=== PATIENT | female | born 1985 | race Caucasian/White ===

== ENCOUNTER 2018-12-30 17:03 | Inpatient (IN) | payer BC ==
[2018-12-30] MEDS ORDERED: SODIUM CHLORIDE 0.9% 500 ML 500 ML IV STA (18:53)
--- NOTE | 2018-12-30 18:55 | ED ---
General Adult HPI - General Source: patient, RN notes reviewed Mode of arrival: ambulatory Limitations: no limitations <Florentino Clark - Last Filed: 12/30/18 20:56> <Augustine Whitehead - Last Filed: 12/30/18 23:46> - General Chief complaint: Upper Respiratory Infection Stated complaint: Cough, SOB, chest tightness Time Seen by Provider: 12/30/18 18:00 - History of Present Illness Initial comments: This is a 33-year-old female presents emergency Department complaining of shortness of breath since November. Patient states she was initially diagnosed with bronchitis and given antibody steroids and inhalers. Patient states initially she thought she was getting a little better but over the last 2 weeks she's gotten progressively worse. Patient states even walking around the house with the basket of laundry is getting her short of breath per patient understands she's not in great shape but this has never even been a slight problem in the past. Patient states she has been on it for hour car ride in 2 and half hour plane ride recently but has had no calf tenderness or leg swelling. Patient states she is short of breath with exertion in particular. Patient has not had any chest pain here patient denies any recent fever and states she has had a dry cough. Patient denies any palpitations (Florentino Clark) - Related Data Home Medications Medication Instructions Recorded Confirmed No Known Home Medications 12/30/18 12/30/18 Allergies Allergy/AdvReac Type Severity Reaction Status Date / Time amoxicillin Allergy Rash/Hives Verified 12/30/18 19:03 neomycin Allergy Rash/Hives Verified 12/30/18 19:03 Review of Systems ROS Other: All systems not noted in ROS Statement are negative. <Florentino Clark - Last Filed: 12/30/18 20:56> ROS Other: All systems not noted in ROS Statement are negative. <Augustine Whitehead - Last Filed: 12/30/18 23:46> ROS Statement: Those systems with pertinent positive or pertinent negative responses have been documented in the HPI. Past Medical History Past Medical History: No Reported History History of Any Multi-Drug Resistant Organisms: None Reported Additional Past Surgical History / Comment(s): oral surgery Past Psychological History: No Psychological Hx Reported Smoking Status: Never smoker Past Alcohol Use History: None Reported, Occasional Past Drug Use History: None Reported <Florentino Clark - Last Filed: 12/30/18 20:56> General Exam Limitations: no limitations <Florentino Clark - Last Filed: 12/30/18 20:56> <Augustine Whitehead - Last Filed: 12/30/18 23:46> - General Exam Comments Initial Comments: GENERAL: Patient is well-developed and well-nourished. Patient is nontoxic and well- hydrated and is in mild distress. ENT: Neck is soft and supple. No significant lymphadenopathy is noted. Oropharynx is clear. Moist mucous membranes. Neck has full range of motion without eliciting any pain. EYES: The sclera were anicteric and conjunctiva were pink and moist. Extraocular movements were intact and pupils were equal round and reactive to light. Eyelids were unremarkable. PULMONARY: Unlabored respirations. Good breath sounds bilaterally. No audible rales rhonchi or wheezing was noted. CARDIOVASCULAR: Patient is tachycardic at about 105 beats a minute ABDOMEN: Soft and nontender with normal bowel sounds. No palpable organomegaly was noted. There is no palpable pulsatile mass. SKIN: Skin is clear with no lesions or rashes and otherwise unremarkable. NEUROLOGIC: Patient is alert and oriented x3. Cranial nerves II through XII are grossly intact. Motor and sensory are also intact. Normal speech, volume and content. Symmetrical smile. MUSCULOSKELETAL: Normal extremities with adequate strength and full range of motion. No lower extremity swelling or edema. No calf tenderness. LYMPHATICS: No significant lymphadenopathy is noted PSYCHIATRIC: Normal psychiatric evaluation. Normal interpersonal interactions appears functionally intact in deals appropriately with others. No signs of depression. No signs of anxiety. (Florentino Clark) Vital Signs 12/30/18 12/30/18 12/30/18 17:55 20:00 21:00 Temperature 98.6 F Pulse Rate 103 H 110 H 103 H Respiratory 18 22 22 Rate Blood Pressure 114/81 120/92 118/68 O2 Sat by Pulse 99 96 96 Oximetry 12/30/18 12/30/18 22:00 23:00 Temperature Pulse Rate 100 104 H Respiratory 22 22 Rate Blood Pressure 104/83 114/93 O2 Sat by Pulse 96 95 Oximetry Medical Decision Making - Lab Data Result diagrams: 12/30/18 19:23 12/30/18 19:23 <Florentino Clark - Last Filed: 12/30/18 20:56> - Lab Data Result diagrams: 12/30/18 19:23 12/30/18 19:23 <Augustine Whitehead - Last Filed: 12/30/18 23:46> - Medical Decision Making EKG shows sinus tachycardia with occasional PVC at 104 bpm CA interval 186 dresses 92 QT interval 370 QTC is 46. Patient's EKG shows no ST segment elevation or depression. Chest x-ray shows right middle and right lower lobe pneumonia. Patient's d-dimer was elevated so a CAT scan was ordered. I started the patient on Levaquin by mouth (Florentino Clark) I receive this patient as sign out, pending the remainder of her studies. The computed tomography scan does not show PE but more suggestive of a bit of CHF. The BNP also supports this. Given these findings, will admit patient to have 2- D echo and cardiology consultation. (Augustine Whitehead) - Lab Data Lab Results 12/30/18 12/30/18 12/30/18 Range/Units 19:23 19:23 19:23 WBC 8.7 (3.8-10.6) k/uL RBC 4.60 (3.80-5.40) m/uL Hgb 13.7 (11.4-16.0) gm/dL Hct 42.0 (34.0-46.0) % MCV 91.5 (80.0-100.0) fL MCH 29.7 (25.0-35.0) pg MCHC 32.5 (31.0-37.0) g/dL RDW 13.8 (11.5-15.5) % Plt Count 235 (150-450) k/uL Neutrophils % 73 % Lymphocytes % 19 % Monocytes % 5 % Eosinophils % 2 % Basophils % 0 % Neutrophils # 6.4 (1.3-7.7) k/uL Lymphocytes # 1.7 (1.0-4.8) k/uL Monocytes # 0.4 (0-1.0) k/uL Eosinophils # 0.2 (0-0.7) k/uL Basophils # 0.0 (0-0.2) k/uL PT (9.0-12.0) sec INR (<1.2) APTT (22.0-30.0) sec D-Dimer (<0.60) mg/L FEU Sodium 140 (137-145) mmol/L Potassium 4.1 (3.5-5.1) mmol/L Chloride 111 H (98-107) mmol/L Carbon Dioxide 20 L (22-30) mmol/L Anion Gap 9 mmol/L BUN 13 (7-17) mg/dL Creatinine 0.74 (0.52-1.04) mg/dL Est GFR (CKD-EPI)AfAm >90 (>60 ml/min/1.73 sqM) Est GFR (CKD-EPI)NonAf >90 (>60 ml/min/1.73 sqM) Glucose 104 H (74-99) mg/dL Calcium 8.8 (8.4-10.2) mg/dL Magnesium 1.8 (1.6-2.3) mg/dL Total Bilirubin 1.4 H (0.2-1.3) mg/dL AST 33 (14-36) U/L ALT 80 H (9-52) U/L Alkaline Phosphatase 43 (38-126) U/L Total Creatine Kinase 55 (30-135) U/L CK-MB (CK-2) 0.7 (0.0-2.4) ng/mL CK-MB (CK-2) Rel Index 1.3 Troponin I <0.012 (0.000-0.034) ng/mL NT-Pro-B Natriuret Pep pg/mL Total Protein 6.0 L (6.3-8.2) g/dL Albumin 3.5 (3.5-5.0) g/dL Urine HCG, Qual (Not Detectd) 12/30/18 12/30/18 12/30/18 Range/Units 19:23 19:23 20:10 WBC (3.8-10.6) k/uL RBC (3.80-5.40) m/uL Hgb (11.4-16.0) gm/dL Hct (34.0-46.0) % MCV (80.0-100.0) fL MCH (25.0-35.0) pg MCHC (31.0-37.0) g/dL RDW (11.5-15.5) % Plt Count (150-450) k/uL Neutrophils % % Lymphocytes % % Monocytes % % Eosinophils % % Basophils % % Neutrophils # (1.3-7.7) k/uL Lymphocytes # (1.0-4.8) k/uL Monocytes # (0-1.0) k/uL Eosinophils # (0-0.7) k/uL Basophils # (0-0.2) k/uL PT 11.5 (9.0-12.0) sec INR 1.1 (<1.2) APTT 23.4 (22.0-30.0) sec D-Dimer 0.87 H (<0.60) mg/L FEU Sodium (137-145) mmol/L Potassium (3.5-5.1) mmol/L Chloride (98-107) mmol/L Carbon Dioxide (22-30) mmol/L Anion Gap mmol/L BUN (7-17) mg/dL Creatinine (0.52-1.04) mg/dL Est GFR (CKD-EPI)AfAm (>60 ml/min/1.73 sqM) Est GFR (CKD-EPI)NonAf (>60 ml/min/1.73 sqM) Glucose (74-99) mg/dL Calcium (8.4-10.2) mg/dL Magnesium (1.6-2.3) mg/dL Total Bilirubin (0.2-1.3) mg/dL AST (14-36) U/L ALT (9-52) U/L Alkaline Phosphatase (38-126) U/L Total Creatine Kinase (30-135) U/L CK-MB (CK-2) (0.0-2.4) ng/mL CK-MB (CK-2) Rel Index Troponin I (0.000-0.034) ng/mL NT-Pro-B Natriuret Pep 7950 pg/mL Total Protein (6.3-8.2) g/dL Albumin (3.5-5.0) g/dL Urine HCG, Qual Not Detected (Not Detectd) Disposition <Florentino Clark - Last Filed: 12/30/18 20:56> Is patient prescribed a controlled substance at d/c from ED?: No <Augustine Whitehead - Last Filed: 12/30/18 23:46> Clinical Impression: CHF (congestive heart failure) Disposition: ADMITTED IP TO THIS HOSP Condition: Fair Referrals: Nonstaff,Physician [Primary Care Provider] - 1-2 days
[2018-12-30 19:40] LABS: Basophils % (A) 0 %; Eosinophils # (A) 0.2 k/uL (0-0.7); Eosinophils % (A) 2 %; HGB 13.7 gm/dL (11.4-16.0); Lymphocytes # (A) 1.7 k/uL (1.0-4.8); Lymphocytes % (A) 19 %; MCH 29.7 pg (25.0-35.0); MCHC 32.5 g/dL (31.0-37.0); MCV 91.5 fL (80.0-100.0); Mean Platelet Volume 7.5; Monocytes # (A) 0.4 k/uL (0-1.0); Monocytes % (A) 5 %; Neutrophils # (A) 6.4 k/uL (1.3-7.7); Neutrophils % (A) 73 %; Platelet Count 235 k/uL (150-450); RDW 13.8 % (11.5-15.5); WBC 8.7 k/uL (3.8-10.6)
[2018-12-30 19:51] LABS: ALT 80 U/L (9-52); AST 33 U/L (14-36); Albumin 3.5 g/dL (3.5-5.0); Alkaline Phosphatase 43 U/L (38-126); Anion Gap 9 mmol/L; Blood Urea Nitrogen 13 mg/dL (7-17); Calcium 8.8 mg/dL (8.4-10.2); Carbon Dioxide 20 mmol/L (22-30); Chloride 111 mmol/L (98-107); Glucose 104 mg/dL (74-99); Magnesium 1.8 mg/dL (1.6-2.3); Potassium 4.1 mmol/L (3.5-5.1); Sodium 140 mmol/L (137-145); Total Bilirubin 1.4 mg/dL (0.2-1.3)
[2018-12-30 19:54] LABS: Creatine Kinase 55 U/L (30-135)
[2018-12-30 20:06] LABS: INR 1.1 (<1.2); Partial Thromboplastin Time 23.4 sec (22.0-30.0); Prothrombin Time 11.5 sec (9.0-12.0)
[2018-12-30 20:07] LABS: Creatine Kinase MB 0.7 ng/mL (0.0-2.4); Troponin I <0.012 ng/mL (0.000-0.034)
[2018-12-30 20:13] LABS: D-Dimer 0.87 mg/L FEU (<0.60)
--- NOTE | 2018-12-30 20:24 | XR ---
EXAMINATION TYPE: XR chest 2V DATE OF EXAM: 12/30/2018 COMPARISON: NONE HISTORY: Cough short of breath TECHNIQUE: Frontal and lateral views of the chest are obtained. FINDINGS: Heart is enlarged. There is some infiltrate in the right middle lobe and right lower lobe. There is no gross heart failure. There is no definite pleural effusion. There are chest leads. IMPRESSION: Cardiomegaly. Right middle lobe and right lower lobe pneumonic infiltrate consistent wit h pneumonia. No definite heart failure.
[2018-12-30] MEDS ORDERED: LEVOFLOXACIN 750 MG TAB PO STA (20:55)
--- NOTE | 2018-12-30 21:40 | CT ---
EXAMINATION TYPE: CT chest angio for PE DATE OF EXAM: 12/30/2018 COMPARISON: None HISTORY: Cough and difficulty breathing. CT DLP: 451.2 mGycm Automated exposure control for dose reduction was used. CONTRAST: CT Chest for pulmonary embolism performed with with IV Contrast, patient injected with 64ml mL of Iso mason 370. FINDINGS: There are 3-D post processed images. There is no mediastinal adenopathy. Thoracic aorta shows no evidence of aneurysm. There are no hilar masses. There is normal contrast opacification of the pulmonary arteries. I see no filling defects. H eart appears slightly enlarged. There are a few bronchial lymph nodes that measure up to 1 cm. There is right pleural effusion. There is some patchy interstitial infiltrate and atelectasis at the lung b ases more on the right side. The bony thorax is intact. IMPRESSION: No evidence of pulmonary embolism. Cardiomegaly with right pleural effusion and interstitial infiltra evon and atelectasis at the lung bases. This could relate to congestive heart failure.
[2018-12-30] MEDS ORDERED: FUROSEMIDE 10 MG/ML 4 ML VIAL IV SCH (23:30)
[2018-12-31] MEDS ORDERED: NALOXONE 0.4 MG/ML 1 ML VIAL IV PRN (00:08)
--- NOTE | 2018-12-31 00:12 | P.HPIM ---
History of Present Illness H&P Date: 12/30/18 Patient is a 33-year-old female with no significant PMH who presented to the ED due to gradually worsening shortness of breath along with nonproductive cough ongoing since October 2018. The patient notes that she was seen by her PMD and was believed to have bronchitis and was prescribed albuterol inhalers along with Z-Maycol which did not relieve her symptoms. The shortness of breath is exertional and is accompanied by chest discomfort. The patient also endorsed episodic nausea and abdominal discomfort along with one episode of bright yellow watery stools yesterday. The patient however denied orthopnea, PND, lower extremity swelling, palpitations, fever, chills, sore throat, dysuria, or constipation. Of note, the patient's spouse was diagnosed twice with myocarditis and systolic CHF in 2010 and 2012 with EF of 5%, and subsequently recovered to EF of 40%. In the emergency room, the patient underwent a comprehensive workup, with BNP 7950, troponin less than 0.02, T bili 1.4, WBC 8.7, hemogram 13.7, platelets 235 , BUN 13, creatinine 0.74, EKG showing sinus tachycardia at 104 bpm with PVCs, left axis deviation, multiple T-wave abnormalities. Chest x-ray revealed cardiomegaly and possible pneumonia. CTA chest showed pulmonary edema along with interstitial infiltrates and cardiomegaly. The patient is subsequently being admitted to the medicine service for suspected cardiomyopathy and for cardiology evaluation. Review of Systems Pertinent positives and negatives as discussed in HPI, a complete review of systems was performed and all other systems are negative. Past Medical History Past Medical History: No Reported History History of Any Multi-Drug Resistant Organisms: None Reported Additional Past Surgical History / Comment(s): oral surgery Past Psychological History: No Psychological Hx Reported Smoking Status: Never smoker Past Alcohol Use History: None Reported, Occasional Past Drug Use History: None Reported Medications and Allergies Home Medications Medication Instructions Recorded Confirmed Type No Known Home Medications 12/30/18 12/30/18 History Allergies Allergy/AdvReac Type Severity Reaction Status Date / Time amoxicillin Allergy Rash/Hives Verified 12/30/18 19:03 neomycin Allergy Rash/Hives Verified 12/30/18 19:03 Physical Exam Vitals: Vital Signs Temp Pulse Resp BP Pulse Ox 12/30/18 23:00 104 H 22 114/93 95 12/30/18 22:00 100 22 104/83 96 12/30/18 21:00 103 H 22 118/68 96 12/30/18 20:00 110 H 22 120/92 96 12/30/18 17:55 98.6 F 103 H 18 114/81 99 Intake and Output 12/30/18 12/30/18 12/31/18 14:59 22:59 06:59 Other: Weight 108.862 kg General: non toxic, no distress, appears at stated age, normal weight Derm: no unusual rashes/lesions no unusual ecchymoses, warm, dry Head: atraumatic, normocephalic, symmetric Eyes: EOMI, no lid lag, anicteric sclera, pupils equal round reactive to light ENT: Nose and ears atraumatic, no thrush, no pharyngeal erythema Neck: No thyromegaly, no cervical lymphadenopathy, trachea midline, supple Mouth: no lip lesion, mucus membranes moist Cardiovascular: S1S2 reg, no murmur, positive posterior tibial pulse bilateral, no edema, capillary refill less than 2 seconds Lungs: Mild bibasilar Rales, mild scattered rhonchi, , no accessory muscle use Abdominal: soft, nontender to palpation, no guarding, no appreciable organomegaly, normal bowel sounds Ext: no gross muscle atrophy, muscle strength 5 out of 5 in all 4 extremities grossly, no contractures, Neuro: CN II-XI grossly intact, light touch intact all 4 extremities, finger to nose within normal limits, Psych: Alert, oriented, appropriate affect Results CBC & Chem 7: 12/30/18 19:23 12/30/18 19:23 Labs: Abnormal Lab Results - Last 24 Hours (Table) 12/30/18 12/30/18 Range/Units 19:23 19:23 D-Dimer 0.87 H (<0.60) mg/L FEU Chloride 111 H (98-107) mmol/L Carbon Dioxide 20 L (22-30) mmol/L Glucose 104 H (74-99) mg/dL Total Bilirubin 1.4 H (0.2-1.3) mg/dL ALT 80 H (9-52) U/L Total Protein 6.0 L (6.3-8.2) g/dL Assessment and Plan Plan: Fluid overload, suspected cardiomyopathy -Cardiac monitoring -Cardiology consult -Lasix 40 mg IV push every 12 hourly -Monitor BMP -Echocardiogram -Supplemental oxygen -Intake and output -Daily weights -Low suspicion of pneumonia, hold off on antibiotics at this time Deranged LFTs -Right upper quadrant ultrasound -Monitor LFTs DVT//GI prophylaxis -Heparin -Protonix The patient is admitted with an anticipated greater than 2 midnight stay for evaluation of shortness of breath. CODE STATUS: Full code Discussed with: Patient Anticipated discharge date: 01/02/[address]: Home A total of 45 minutes was spent on the care of this complex patient more than 50 % of the time was spent in counseling and care coordination.
[2018-12-31] MEDS ORDERED: FUROSEMIDE 10 MG/ML 4 ML VIAL IV SCH (00:15)
[2018-12-31 05:59] LABS: Creatine Kinase MB 0.8 ng/mL (0.0-2.4); Troponin I <0.012 ng/mL (0.000-0.034)
[2018-12-31] MEDS: HEPARIN SODIUM,PORCINE 5,000 UNIT/ML 1 ML VIAL SQ SCH ×3 (08:59→23:07)
[2018-12-31] MEDS: PANTOPRAZOLE 40 MG TABLET PO SCH (09:01)
[2018-12-31] MEDS ORDERED: INFLUENZA VACCINE (6 MOS+) 60 MCG/0.5 ML SYRINGE IM ONE (10:11)
--- NOTE | 2018-12-31 11:13 | ECHOF ---
Referral Reason:CHF MEASUREMENTS -------- HEIGHT: 167.6 cm WEIGHT: 108.9 kg BP: 91/68 RVIDd: 3.8 cm (< 3.3) IVSd: 1.1 cm (0.6 - 1.1) LVIDd: 5.4 cm (3.9 - 5.3) LVPWd: 1.2 cm (0.6 - 1.1) IVSs: 1.4 cm LVIDs: 5.1 cm LVPWs: 1.3 cm LAESV Index (A-L): 49.61 ml/m Ao Diam: 2.6 cm (2.0 - 3.7) AV Cusp: 1.8 cm (1.5 - 2.6) LA Diam: 4.5 cm (2.7 - 3.8) MV EXCURSION: 23.948 mm (> 18.000) MV EF SLOPE: 156 mm/s (70 - 150) EPSS: 1.7 cm MV E Leighton: 1.06 m/s MV DecT: 162 ms MV A Leighton: 0.23 m/s MV E/A Ratio: 4.57 RAP: 15.00 mmHg RVSP: 39.47 mmHg FINDINGS -------- Sinus rhythm. This was a technically good study. The left ventricle is mildly dilated. There is borderline concentric left ventricular hypertrophy. There is severe global hypokinesis of LV . Overall left ventricular systolic function is severely impaired with, an EF between 20 - 25 %. The LV end diastolic pressure is elevated 17.14. The right ventricle is mild to moderately enlarged. LA is severely dilated >40 ml/m2 The right atrium is normal in size. Interatrial septal aneurysm. The aortic valve is trileaflet, and appears structurally normal. No aortic stenosis or regurgitation. The mitral valve leaflets are mildly thickened. [id number] mitral regurgitation is present. Moderate to severe tricuspid regurgitation present. There is mild pulmonary hypertension. The rig ht ventricular systolic pressure, as measured by Doppler, is 39.47mmHg. Pulmonic valve appears structurally normal. The aortic root size is normal. The inferior vena cava is mildly dilated. The pericardium is normal. CONCLUSIONS -------- 1. Sinus rhythm. 2. This was a technically good study. 3. The left ventricle is mildly dilated. 4. There is borderline concentric left ventricular hypertrophy. 5. There is severe global hypokinesis of LV . 6. Overall left ventricular systolic function is severely impaired with, an EF between 20 - 25 %. 7. The right ventricle is mild to moderately enlarged. 8. LA is severely dilated >40 ml/m2 9. The right atrium is normal in size. 10. Interatrial septal aneurysm. 11. The aortic valve is trileaflet, and appears structurally normal. No aortic stenosis or regurgitat ion. 12. The mitral valve leaflets are mildly thickened. 13. Ytddgvov-rf-kzgxbk mitral regurgitation is present. 14. Moderate to severe tricuspid regurgitation present. 15. There is mild pulmonary hypertension. 16. The right ventricular systolic pressure, as measured by Doppler, is 39.47mmHg. 17. Pulmonic valve appears structurally normal. 18. The aortic root size is normal. 19. The inferior vena cava is mildly dilated. 20. The pericardium is normal. [employer] OPERATOR: Fawn Deal RDCS
[2018-12-31] MEDS: FUROSEMIDE 10 MG/ML 4 ML VIAL IV SCH ×2 (12:02→20:24)
[2018-12-31 13:05] LABS: Creatine Kinase MB 0.7 ng/mL (0.0-2.4); Troponin I <0.012 ng/mL (0.000-0.034)
--- NOTE | 2018-12-31 14:38 | US ---
EXAMINATION TYPE: US abdomen limited DATE OF EXAM: 12/31/2018 COMPARISON: NONE CLINICAL HISTORY: Abnormal LFTs, RUQ US. diagnosed with CHF, chest pain EXAM MEASUREMENTS: Liver Length: 18.9 cm Gallbladder Wall: 0.3 cm CBD: 0.5 cm Right Kidney: 12.0 x 4.4 x 4.4 cm Pancreas: wnl Liver: Suspect the liver is enlarged Gallbladder: wnl Evidence for sonographic Kolb's sign: no CBD: wnl Right Kidney: wnl There is no ascites. IMPRESSION: Suspect hepatomegaly
--- NOTE | 2018-12-31 15:09 | CONS ---
CONSULTATION Mrs. Louise is 33-year-old female with no prior documented history of cardiac disease who early in November had upper respiratory infection, was treated. She got better but then started to continue to be dyspneic on exertion with worsening over the last few weeks. She did not note any significant peripheral edema. She has continued to be limited in her physical activity as well as having cough. She used to be active physically but not over the last 6 months and has gained some weight. She denies any symptoms of chest pain. She has no dizziness or palpitation. No syncope. No PND. No orthopnea. She has not noted any peripheral edema. Her coronary risk factors negative for hypertension, hyperlipidemia. She is a nonsmoker, nondiabetic. SOCIAL HISTORY: She drinks caffeine. Non smoker. She drinks about 5 glasses of wine a week, but not on a daily basis. REVIEW OF SYSTEMS: RESPIRATORY system: She had a cough, the recent upper respiratory infection. GI system: No nausea and no vomiting. No GI bleeding. system: No dysuria or hematuria. Nervous system: No stroke or seizure. PHYSICAL EXAMINATION: She is a 33-year-old female, alert, oriented, in no apparent distress. Blood pressure 119/80 with a heart rate in the low 100s. HEAD: Normocephalic. EYES: Sclerae anicteric. NECK: Good upstroke. No bruit. LUNGS: A few crackles at the bases. HEART: Regular rate and rhythm S1-S2. Tachycardic. systolic murmur at the apex. ABDOMEN: Soft, nontender. Positive bowel sounds. No organomegaly. EXTREMITIES: Trace edema. LAB DATA: Lab data revealed troponin less than 0.012 for 3 samples. NT proBNP of 7950. BUN and creatinine of 13 and 0.74. D-dimer 0.87. Hemoglobin of 13.7. EKG revealed a sinus tachycardia with occasional PVCs and poor R-wave progression. Chest x-ray revealed cardiomegaly with a questionable infiltrate. CT scan of the chest revealed no evidence of pulmonary embolism with cardiomegaly and right pleural effusion consistent with congestive heart failure. Echocardiogram with Doppler revealed a severely impaired left ventricular systolic function with moderate to severe mitral and mild to severe tricuspid regurgitation. IMPRESSION: 1. Congestive heart failure, severe cardiomyopathy of unclear etiology. The patient may have had a viral myocarditis. 2. The other possibility includes idiopathic dilated cardiomyopathy of unknown duration. RECOMMENDATIONS: From the cardiac standpoint, I will add to her regimen a beta genna, Aldactone. Continue on IV diuretics. I will start very low-dose SHERIDAN inhibitor and depending on her blood pressure, further adjustment will be made. The patient will require coronary angiography when she is stabilized from the cardiac standpoint to rule out obstructive coronary artery disease, although the likelihood of that is low. I have discussed those findings with the patient and her and they are in full understanding and agreement. Thank you for this consult. We will follow with you. ARASH / IJN: [id number] /
[2018-12-31 15:12] VITALS: BMI 37.7
--- NOTE | 2018-12-31 15:13 | P.PN ---
Subjective Progress Note Date: 12/31/18 Principal diagnosis: CHF exacerbation Patient seen and examined. No acute events overnight. Patient reports great improvement in breathing since being given IV Lasix. She denies any shortness of breath, cough, chest pain or palpitations. Patient reports feeling short of breath and fatigue with exertional dyspnea since November. She denies any history of lupus or rheumatoid arthritis. She denies any ongoing chest pain at this time. She denies any abnormal viral infections or genetic family history of early CHF. She has never had any children. 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 Objective - Vital Signs Vital signs: Vital Signs Temp 97.8 F 12/31/18 12:00 Pulse 119 H 12/31/18 12:00 Resp 17 12/31/18 12:00 BP 119/80 12/31/18 12:00 Pulse Ox 97 12/31/18 12:00 Intake & Output 12/30/18 12/31/18 12/31/18 18:59 06:59 18:59 Output Total 2500 Balance -2500 Weight 108.862 kg 106 kg Output: Urine 2500 Other: # Voids 2 1 - Exam General: [non toxic], [no distress], [appears at stated age] Derm: [warm], [dry] Head: [atraumatic], [normocephalic], [symmetric] Eyes: [EOMI], [no lid lag], [anicteric sclera] Mouth: [no lip lesion], [mucus membranes moist] Cardiovascular: [S1S2 reg], [no murmur], [positive DP pulse bilateral] Lungs: [CTA bilateral], [no rhonchi, no rales] , [no accessory muscle use] Abdominal: [soft], [ nontender to palpation], [no guarding], [no appreciable organomegaly] Ext: [no gross muscle atrophy], [no edema], [no contractures] Neuro: [ CN II-XI grossly intact], [no focal neuro deficits] Psych: [Alert], [oriented], [appropriate affect] - Labs CBC & Chem 7: 12/30/18 19:23 12/30/18 19:23 Labs: Abnormal Lab Results - Last 24 Hours (Table) 12/30/18 12/30/18 Range/Units 19:23 19:23 D-Dimer 0.87 H (<0.60) mg/L FEU Chloride 111 H (98-107) mmol/L Carbon Dioxide 20 L (22-30) mmol/L Glucose 104 H (74-99) mg/dL Total Bilirubin 1.4 H (0.2-1.3) mg/dL ALT 80 H (9-52) U/L Total Protein 6.0 L (6.3-8.2) g/dL Assessment and Plan Assessment: Assessment and Plan 1. CHF exacerbation 2. Elevated d-dimer 3. Hyperchloremic metabolic acidosis 4. Elevated liver enzymes 5. GI and DVT prophylaxis 1. BNP is 7950. Chest x-ray shows cardiomegaly, pneumonic infiltrate possible pneumonia. CTA of the chest is performed due to the elevated d-dimer, negative for PE. Echocardiogram shows EF of 20-25% with LVH and severely impaired systolic function. We'll continue diuresing with Lasix 40 mg IV twice a day. Start beta genna and SHERIDAN inhibitor. Start spironolactone. Daily weights. Intake and output take. Telemetry monitoring. Will follow cardiology recommendations for possible cath. 2. D-dimer elevated at 0.87. CTA of the chest rules out vomiting embolus. 3. Chloride of 111, bicarbonate of 20. Possibly from bolus received in ED. Daily BMP. 4. Total bilirubin of 1.4, ALT of 80. Likely secondary to dehydration and likely liver dysfunction for obesity. Will follow abdominal ultrasound. 5. Continue heparin and Protonix. Patient medical CHF exacerbation, cardiology on consult. Unknown cause for acute onset systolic heart failure. Continue IV diuresing. Patient is pending clinical improvement. Likely DC in 1-2 days. Fall cartilage recommendations for possible cath.
[2018-12-31] MEDS: METOPROLOL SUCCINATE (ER) 25 MG TAB.ER.24H PO SCH (15:53)
[2018-12-31] MEDS: SPIRONOLACTONE 25 MG TAB PO SCH (15:54)
[2018-12-31] MEDS ORDERED: LEVOFLOXACIN 750 MG TAB PO SCH (21:00)
[2018-12-31] MEDS ORDERED: ASPIRIN 325 MG TAB PO SCH (23:33)
[2019-01-01 06:21] LABS: Basophils % (A) 1 %; Eosinophils # (A) 0.2 k/uL (0-0.7); Eosinophils % (A) 3 %; HCT 45.9 % (34.0-46.0); Lymphocytes # (A) 1.7 k/uL (1.0-4.8); Lymphocytes % (A) 25 %; MCH 29.3 pg (25.0-35.0); MCHC 32.6 g/dL (31.0-37.0); MCV 89.8 fL (80.0-100.0); Mean Platelet Volume 6.8; Monocytes # (A) 0.3 k/uL (0-1.0); Monocytes % (A) 5 %; Neutrophils # (A) 4.7 k/uL (1.3-7.7); Neutrophils % (A) 66 %; Platelet Count 246 k/uL (150-450); RBC 5.11 m/uL (3.80-5.40); RDW 13.6 % (11.5-15.5); WBC 7.1 k/uL (3.8-10.6)
[2019-01-01 06:28] LABS: INR 1.1 (<1.2); Prothrombin Time 11.8 sec (9.0-12.0)
[2019-01-01 06:30] LABS: ALT 75 U/L (9-52); AST 28 U/L (14-36); Albumin 3.6 g/dL (3.5-5.0); Alkaline Phosphatase 46 U/L (38-126); Anion Gap 9 mmol/L; Blood Urea Nitrogen 11 mg/dL (7-17); Calcium 9.1 mg/dL (8.4-10.2); Carbon Dioxide 26 mmol/L (22-30); Chloride 106 mmol/L (98-107); Glucose 94 mg/dL (74-99); Magnesium 1.9 mg/dL (1.6-2.3); Potassium 3.7 mmol/L (3.5-5.1); Sodium 141 mmol/L (137-145); Total Bilirubin 1.5 mg/dL (0.2-1.3)
[2019-01-01] MEDS: PANTOPRAZOLE 40 MG TABLET PO SCH (06:33)
[2019-01-01] MEDS: METOPROLOL SUCCINATE (ER) 25 MG TAB.ER.24H PO SCH (08:42)
[2019-01-01] MEDS: SPIRONOLACTONE 25 MG TAB PO SCH (08:42)
[2019-01-01] MEDS: FUROSEMIDE 10 MG/ML 4 ML VIAL IV SCH ×2 (08:42→20:44)
[2019-01-01] MEDS: ASPIRIN 81 MG PO SCH (08:43)
[2019-01-01] MEDS: HEPARIN SODIUM,PORCINE 5,000 UNIT/ML 1 ML VIAL SQ SCH ×3 (08:43→23:52)
[2019-01-01] MEDS ORDERED: LISINOPRIL 2.5 MG TAB PO SCH (09:00)
--- NOTE | 2019-01-01 11:30 | P.PN ---
Subjective Progress Note Date: 01/01/19 Principal diagnosis: CHF exacerbation patient seen and examined. No acute events overnight. Patient seen ambulating the hallways freely. Patient reports great improvement in her breathing. She has lost 13 pounds since admission. She denies any chest pain, dizziness, shortness of breath or palpitations. Objective - Vital Signs Vital signs: Vital Signs Temp 98.2 F 01/01/19 08:00 Pulse 85 01/01/19 08:00 Resp 18 01/01/19 08:00 BP 105/68 01/01/19 08:00 Pulse Ox 96 01/01/19 08:00 Intake & Output 12/31/18 01/01/19 01/01/19 18:59 06:59 18:59 Intake Total 270 Output Total 4400 1450 Balance -4130 -1450 Weight 106 kg 103 kg Intake: IV 10 Invasive Line 1 10 Oral 260 Output: Urine 4400 1450 Other: # Voids 4 - Exam General: [non toxic], [no distress], [appears at stated age] Derm: [warm], [dry] Head: [atraumatic], [normocephalic], [symmetric] Eyes: [EOMI], [no lid lag], [anicteric sclera] Mouth: [no lip lesion], [mucus membranes moist] Cardiovascular: [S1S2 reg], [systolic murmur], [positive DP pulse bilateral] Lungs: [CTA bilateral], [no rhonchi, no rales] , [no accessory muscle use] Abdominal: [soft], [ nontender to palpation], [no guarding], [no appreciable organomegaly] Ext: [no gross muscle atrophy], [no edema], [no contractures] Neuro: [no focal neuro deficits] Psych: [Alert], [oriented], [appropriate affect] - Labs CBC & Chem 7: 01/01/19 05:42 01/01/19 05:42 Labs: Abnormal Lab Results - Last 24 Hours (Table) 01/01/19 Range/Units 05:42 Total Bilirubin 1.5 H (0.2-1.3) mg/dL ALT 75 H (9-52) U/L Total Protein 6.0 L (6.3-8.2) g/dL Assessment and Plan Assessment: Assessment and Plan 1. CHF exacerbation 2. Severe mitral and tricuspid regurgitation 3. Elevated d-dimer 4. Elevated liver enzymes 5. GI and DVT prophylaxis 1. BNP is 7950. Chest x-ray shows cardiomegaly, pneumonic infiltrate possible pneumonia. CTA of the chest is performed due to the elevated d-dimer, negative for PE. Echocardiogram shows EF of 20-25% with LVH and severely impaired systolic function. We'll continue diuresing with Lasix 40 mg IV twice a day. Start beta genna and SHERIDAN inhibitor. Start spironolactone. Daily weights. Intake and output take. Telemetry monitoring. Cardiology consulted, recommends outpatient follow-up for cath. 2. Severe mitral and tricuspid regurgitation seen on echocardiogram. Patient denies risk factors of endocarditis. Does report multiple episodes of strep throat. Will discuss with cardiology. 3. D-dimer elevated at 0.87. CTA of the chest rules out pulmonary embolus. 4. Total bilirubin of 1.4 to 1.5, ALT of 80 to 75. Likely secondary to dehydration and likely liver dysfunction for obesity. abdominal ultrasound shows hepatomegaly. 5. Continue heparin and Protonix. Patient medical CHF exacerbation, cardiology on consult. Unknown cause for acute onset systolic heart failure. Continue IV diuresing. Patient is pending clinical improvement. Likely DC in 1-2 days.
[2019-01-01] MEDS ORDERED: POTASSIUM CHLORIDE ER 20 MEQ TAB.ER PO STA (12:04)
--- NOTE | 2019-01-01 12:46 | P.PN ---
Subjective Progress Note Date: 01/01/19 This is a 33-year-old female with no prior documented history of coronary artery disease, who had an upper respiratory infection in November which was treated however she states it took quite some time for her to get over. She has noticed over the past 6 months to have gained some weight. She presented to the hospital initially with symptoms of shortness of breath mostly exertional in nature, also evidence of orthopnea. The patient was seen in consultation by Dr. Diaz, echocardiogram with Doppler study showed an ejection fraction of 20-25%, severely dilated left atrium, moderate to severe MR , moderate to severe TR. Patient was initiated on a regime of medications for her cardiomyopathy. This morning we did stop her SHERIDAN inhibitor and instruct the patient that we would be starting her on Entresto 36 hours. Overall the patient feels well, he's been encouraged today to be up ambulating in the hallway. Blood pressure 108/70 with a heart rate in the 50s to 60s, 96% on room air. Objective - Vital Signs Vital signs: Vital Signs Temp 98.2 F 01/01/19 11:51 Pulse 54 L 01/01/19 11:51 Resp 17 01/01/19 11:51 BP 108/78 01/01/19 11:51 Pulse Ox 96 01/01/19 11:51 Intake & Output 12/31/18 01/01/19 01/01/19 18:59 06:59 18:59 Intake Total 270 260 Output Total 4400 1450 600 Balance -4130 -1450 -340 Weight 106 kg 103 kg Intake: IV 10 Invasive Line 1 10 Oral 260 260 Output: Urine 4400 1450 600 Other: # Voids 4 - Exam PHYSICAL EXAMINATION: GENERAL: 31-year-old female in no acute distress at the time of my examination HEENT: Head is atraumatic, normocephalic. Pupils equal, round. Sclera anicteric. Conjunctiva are clear. Mucous membranes of the mouth are moist. Neck is supple. There is no elevated jugular venous pressure. No carotid bruit is heard. HEART EXAMINATION: Heart S1 S2 1 systolic murmur is heard CHEST EXAMINATION: Lungs are clear to auscultation and precussion. No chest wall tenderness is noted on palpation or with deep breathing. ABDOMEN: Soft, nontender. Bowel sounds are heard. No organomegaly noted. EXTREMITIES: 2+ peripheral pulses with trace evidence of peripheral edema and no calf tenderness noted. NEUROLOGIC patient is awake, alert and oriented 3 . . - Labs CBC & Chem 7: 01/01/19 05:42 01/01/19 05:42 Labs: Abnormal Lab Results - Last 24 Hours (Table) 01/01/19 Range/Units 05:42 Total Bilirubin 1.5 H (0.2-1.3) mg/dL ALT 75 H (9-52) U/L Total Protein 6.0 L (6.3-8.2) g/dL Assessment and Plan Plan: Assessment and plan #1 systolic congestive heart failure acute #2 severe cardiomyopathy, of unclear etiology, possibly of viral myocarditis or idiopathic dilated cardiomyopathy Plan We will discontinue the SHERIDAN inhibitor, and 36 hours start the patient on Entresto. Continue a baby aspirin, IV Lasix, metoprolol, and Aldactone. Check labs in the morning. DNP note has been reviewed, I agree with a documented findings and plan of care. Patient was seen and examined.
[2019-01-01] MEDS: MAGNESIUM SULFATE-D5W PMX 1 GM in DEXTROSE/WATER 1 100ML.BAG IVPB SCH ×2 (12:59→14:40)
[2019-01-02] MEDS: PANTOPRAZOLE 40 MG TABLET PO SCH (06:28)
[2019-01-02 06:49] LABS: Basophils # (A) 0.1 k/uL (0-0.2); Basophils % (A) 1 %; Eosinophils # (A) 0.2 k/uL (0-0.7); Eosinophils % (A) 3 %; HCT 47.9 % (34.0-46.0); HGB 15.3 gm/dL (11.4-16.0); Lymphocytes # (A) 1.7 k/uL (1.0-4.8); Lymphocytes % (A) 24 %; MCH 28.6 pg (25.0-35.0); MCV 89.5 fL (80.0-100.0); Mean Platelet Volume 6.7; Monocytes # (A) 0.4 k/uL (0-1.0); Monocytes % (A) 6 %; Neutrophils # (A) 4.5 k/uL (1.3-7.7); Neutrophils % (A) 64 %; Platelet Count 261 k/uL (150-450); RBC 5.36 m/uL (3.80-5.40); RDW 13.7 % (11.5-15.5)
[2019-01-02 07:03] LABS: ALT 63 U/L (9-52); AST 22 U/L (14-36); Albumin 3.7 g/dL (3.5-5.0); Alkaline Phosphatase 48 U/L (38-126); Anion Gap 9 mmol/L; Blood Urea Nitrogen 13 mg/dL (7-17); Calcium 8.9 mg/dL (8.4-10.2); Carbon Dioxide 26 mmol/L (22-30); Chloride 105 mmol/L (98-107); Glucose 98 mg/dL (74-99); Magnesium 2.2 mg/dL (1.6-2.3); Potassium 4.2 mmol/L (3.5-5.1); Sodium 140 mmol/L (137-145); Total Bilirubin 1.2 mg/dL (0.2-1.3); Total Protein 6.3 g/dL (6.3-8.2)
[2019-01-02] MEDS: ASPIRIN 81 MG PO SCH (08:11)
[2019-01-02] MEDS: METOPROLOL SUCCINATE (ER) 25 MG TAB.ER.24H PO SCH (08:11)
[2019-01-02] MEDS: HEPARIN SODIUM,PORCINE 5,000 UNIT/ML 1 ML VIAL SQ SCH (08:12)
[2019-01-02] MEDS: FUROSEMIDE 10 MG/ML 4 ML VIAL IV SCH (08:12)
--- NOTE | 2019-01-02 11:47 | P.PN ---
Subjective Progress Note Date: 01/02/19 Principal diagnosis: CHF exacerbation Patient seen and examined. No acute events overnight. Patient seen ambulating the hallways comfortably. She denies any shortness of breath, chest pain or palpitations. Patient reports returning back to baseline. Plans to start and Entresto today, monitor vitals overnight, likely discharge tomorrow. Objective - Vital Signs Vital signs: Vital Signs Temp 97.5 F L 01/02/19 11:38 Pulse 94 01/02/19 11:38 Resp 18 01/02/19 11:38 BP 95/53 01/02/19 11:38 Pulse Ox 97 01/02/19 11:38 Intake & Output 01/01/19 01/02/19 01/02/19 18:59 06:59 18:59 Intake Total 1780 240 Output Total 1200 1500 Balance 580 -1500 240 Weight 102.6 kg Intake: IV 220 Invasive Line 2 20 Magnesium Sulfate-D5w Pmx 200 1 gm In Dextrose/Water 1 100ml.bag @ 100 mls/hr IVPB Q1H JENNIFER Rx#: [id number] Oral 1560 240 Output: Urine 1200 1500 Other: # Voids 2 - Exam General: [non toxic], [no distress], [appears at stated age] Derm: [warm], [dry] Head: [atraumatic], [normocephalic], [symmetric] Eyes: [EOMI], [no lid lag], [anicteric sclera] Mouth: [no lip lesion], [mucus membranes moist] Cardiovascular: [S1S2 reg], [systolic murmur], [positive DP pulse bilateral] Lungs: [CTA bilateral], [no rhonchi, no rales] , [no accessory muscle use] Abdominal: [soft], [ nontender to palpation], [no guarding], [no appreciable organomegaly] Ext: [no gross muscle atrophy], [no edema], [no contractures] Neuro: [no focal neuro deficits] Psych: [Alert], [oriented], [appropriate affect] - Labs CBC & Chem 7: 01/02/19 06:00 01/02/19 06:00 Labs: Abnormal Lab Results - Last 24 Hours (Table) 01/02/19 01/02/19 Range/Units 06:00 06:00 Hct 47.9 H (34.0-46.0) % ALT 63 H (9-52) U/L Assessment and Plan Assessment: Assessment and Plan 1. CHF exacerbation 2. Severe mitral and tricuspid regurgitation 3. Elevated d-dimer 4. Elevated liver enzymes 5. GI and DVT prophylaxis 1. BNP is 7950. Chest x-ray shows cardiomegaly, pneumonic infiltrate possible pneumonia. CTA of the chest is performed due to the elevated d-dimer, negative for PE. Echocardiogram shows EF of 20-25% with LVH and severely impaired systolic function. We'll continue diuresing with Lasix 40 mg IV twice a day. Start beta genna and SHERIDAN inhibitor. Start spironolactone. Daily weights. Intake and output take. Telemetry monitoring. Cardiology consulted, recommends outpatient follow-up for cath. 2. Severe mitral and tricuspid regurgitation seen on echocardiogram. Patient denies risk factors of endocarditis. Does report multiple episodes of strep throat. Continue SHERIDAN inhibitor and Lasix. 3. D-dimer elevated at 0.87. CTA of the chest rules out pulmonary embolus. 4. ALT 63. Likely secondary to dehydration and likely liver dysfunction for obesity. Abdominal ultrasound shows hepatomegaly. 5. Continue heparin and Protonix. Patient medical CHF exacerbation, cardiology on consult. Unknown cause for acute onset systolic heart failure. Continue IV diuresing. Plans to start Entresto tonight, monitor vitals overnight, likely discharge tomorrow.
[2019-01-02] MEDS: SPIRONOLACTONE 25 MG TAB PO SCH (12:14)
--- NOTE | 2019-01-02 15:01 | P.PN ---
Subjective Progress Note Date: 01/02/19 This is a 33-year-old female with no prior documented history of coronary artery disease, who had an upper respiratory infection in November which was treated however she states it took quite some time for her to get over. She has noticed over the past 6 months to have gained some weight. She presented to the hospital initially with symptoms of shortness of breath mostly exertional in nature, also evidence of orthopnea. The patient was seen in consultation by Dr. Diaz, echocardiogram with Doppler study showed an ejection fraction of 20-25%, severely dilated left atrium, moderate to severe MR , moderate to severe TR. Patient was initiated on a regime of medications for her cardiomyopathy. This morning we did stop her SHERIDAN inhibitor and instruct the patient that we would be starting her on Entresto 36 hours. Overall the patient feels well, he's been encouraged today to be up ambulating in the hallway. Blood pressure 108/70 with a heart rate in the 50s to 60s, 96% on room air. 01/02/2019 Patient was seen and examined this morning, doing well overall. Breathing is stable. We will repeat a chest x-ray on her. Weight is down 1 kg. Discontinue IV Lasix and started on oral diuretics. Plan for possible discharge home in 24 hours if stable. Objective - Vital Signs Vital signs: Vital Signs Temp 97.5 F L 01/02/19 11:38 Pulse 94 01/02/19 11:38 Resp 18 01/02/19 11:38 BP 95/53 01/02/19 11:38 Pulse Ox 97 01/02/19 11:38 Intake & Output 01/01/19 01/02/19 01/02/19 18:59 06:59 18:59 Intake Total 1780 360 Output Total 1200 1500 Balance 580 -1500 360 Weight 102.6 kg Intake: IV 220 Invasive Line 2 20 Magnesium Sulfate-D5w Pmx 200 1 gm In Dextrose/Water 1 100ml.bag @ 100 mls/hr IVPB Q1H JENNIFER Rx#: [id number] Oral 1560 360 Output: Urine 1200 1500 Other: # Voids 2 3 - Exam PHYSICAL EXAMINATION: GENERAL: 31-year-old female in no acute distress at the time of my examination HEENT: Head is atraumatic, normocephalic. Pupils equal, round. Sclera anicteric. Conjunctiva are clear. Mucous membranes of the mouth are moist. Neck is supple. There is no elevated jugular venous pressure. No carotid bruit is heard. HEART EXAMINATION: Heart S1 S2 1 systolic murmur is heard CHEST EXAMINATION: Lungs are clear to auscultation and precussion. No chest wall tenderness is noted on palpation or with deep breathing. ABDOMEN: Soft, nontender. Bowel sounds are heard. No organomegaly noted. EXTREMITIES: 2+ peripheral pulses with trace evidence of peripheral edema and no calf tenderness noted. NEUROLOGIC patient is awake, alert and oriented 3 . . - Labs CBC & Chem 7: 01/02/19 06:00 01/02/19 06:00 Labs: Abnormal Lab Results - Last 24 Hours (Table) 01/02/19 01/02/19 Range/Units 06:00 06:00 Hct 47.9 H (34.0-46.0) % ALT 63 H (9-52) U/L Assessment and Plan Plan: Assessment and plan #1 systolic congestive heart failure acute #2 severe cardiomyopathy, of unclear etiology, possibly of viral myocarditis or idiopathic dilated cardiomyopathy Plan We will discontinue the IV Lasix and start the patient on oral diuretics today. Discontinue subcu heparin. Repeat chest x-ray. Plan for possible discharge home in 24 hours if stable. DNP note has been reviewed, I agree with a documented findings and plan of care. Patient was seen and examined.
[2019-01-02] MEDS: FUROSEMIDE 40 MG TAB PO SCH (15:16)
--- NOTE | 2019-01-02 16:02 | XR ---
EXAMINATION TYPE: XR chest 2V DATE OF EXAM: 01/02/2019 COMPARISON: 12/30/2018 HISTORY: Cough short of breath TECHNIQUE: Frontal and lateral views of the chest are obtained. FINDINGS: Heart is enlarged. There is no heart failure. Costophrenic angles are clear. Bony thorax i s intact. There are chest leads. IMPRESSION: Cardiomegaly. No active cardiopulmonary disease. There is clearing of some right middle lobe mild infiltrate or atelectasis compared to last exam. There is clearing of the mild heart failur e compared to last exam.
[2019-01-02] MEDS: SACUBITRIL/VALSARTAN 24 MG-26 MG TABLET PO SCH (20:25)
[2019-01-03] MEDS: PANTOPRAZOLE 40 MG TABLET PO SCH (06:36)
[2019-01-03] MEDS: FUROSEMIDE 40 MG TAB PO SCH (09:02)
[2019-01-03] MEDS: ASPIRIN 81 MG PO SCH (09:03)
[2019-01-03] MEDS: SPIRONOLACTONE 25 MG TAB PO SCH (09:03)
[2019-01-03] MEDS: METOPROLOL SUCCINATE (ER) 25 MG TAB.ER.24H PO SCH (09:03)
[2019-01-03] MEDS: SACUBITRIL/VALSARTAN 24 MG-26 MG TABLET PO SCH (09:22)
[2019-01-03 11:29] VITALS: BP 101/55; PULSE 94; RESP 18; TEMP 98.4
--- NOTE | 2019-01-03 14:02 | P.DS ---
Providers Date of admission: 12/30/18 23:30 Expected date of discharge: 01/03/19 Attending physician: Naresh Herbert MD Consults: 12/30/18 23:30 Consult Physician Routine Consulting Provider: Daniel Hardwick Consult Reason/Comments: CHF, new onset Do you want consulting provider notified?: Yes Primary care physician: Physician Nonstaff Hospital Course: 33-year-old female with no significant PMH who presented to the ED due to gradually worsening shortness of breath along with nonproductive cough ongoing since October 2018. The patient notes that she was seen by her PMD and was believed to have bronchitis and was prescribed albuterol inhalers along with Z- Maycol which did not relieve her symptoms. The shortness of breath is exertional and is accompanied by chest discomfort. The patient also endorsed episodic nausea and abdominal discomfort along with one episode of bright yellow watery stools yesterday. The patient however denied orthopnea, PND, lower extremity swelling, palpitations, fever, chills, sore throat, dysuria, or constipation. Of note, the patient's spouse was diagnosed twice with myocarditis and systolic CHF in 2010 and 2012 with EF of 5%, and subsequently recovered to EF of 40%. In the emergency room, the patient underwent a comprehensive workup, with BNP 7950, troponin less than 0.02, T bili 1.4, WBC 8.7, hemogram 13.7, platelets 235 , BUN 13, creatinine 0.74, EKG showing sinus tachycardia at 104 bpm with PVCs, left axis deviation, multiple T-wave abnormalities. Chest x-ray revealed cardiomegaly and possible pneumonia. CTA chest showed pulmonary edema along with interstitial infiltrates and cardiomegaly. The patient is subsequently being admitted to the medicine service for suspected cardiomyopathy and for cardiology evaluation. With regard to her CHF exacerbation, BNP was 7950. Chest x-ray showed cardiomegaly, pneumonic infiltrate possible pneumonia. CTA of the chest was performed due to an elevated d-dimer and was negative for PE. Cardiology was consulted and recommended echocardiogram. Echocardiogram showed an EF of 20-25 % with LVH and severely impaired systolic function and severe mitral and tricuspid regurgitation. Patient was initially diuresed with Lasix 40 mg IV twice a day which was transitioned to oral prior to discharge. She was started on metoprolol 25 mg by mouth daily. She was also started on spironolactone 25 mg by mouth daily and Entresto 1 tablet by mouth twice a day. Patient was seen and examined prior to discharge. No acute events overnight. Patient reports great improvement in her breathing. Almost back to baseline. She is looking for to going home. She denies any lower clare edema, chest pain, palpitations. General: [non toxic], [no distress], [appears at stated age] Derm: [warm], [dry] Head: [atraumatic], [normocephalic], [symmetric] Eyes: [EOMI], [no lid lag], [anicteric sclera] Mouth: [no lip lesion], [mucus membranes moist] Cardiovascular: [S1S2 reg], [systolic murmur], [positive DP pulse bilateral] Lungs: [CTA bilateral], [no rhonchi, no rales] , [no accessory muscle use] Abdominal: [soft], [ nontender to palpation], [no guarding], [no appreciable organomegaly] Ext: [no gross muscle atrophy], [no edema], [no contractures] Neuro: [no focal neuro deficits] Psych: [Alert], [oriented], [appropriate affect] Assessment and Plan 1. CHF exacerbation 2. Severe mitral and tricuspid regurgitation 3. Elevated d-dimer 4. Elevated liver enzymes 5. GI and DVT prophylaxis 1. BNP is 7950. Chest x-ray shows cardiomegaly, pneumonic infiltrate possible pneumonia. CTA of the chest is performed due to the elevated d-dimer, negative for PE. Echocardiogram shows EF of 20-25% with LVH and severely impaired systolic function. We'll continue diuresing with Lasix 40 mg IV twice a day. Start beta genna and Entresto. Start spironolactone. Daily weights. Intake and output take. Telemetry monitoring. Cardiology consulted, recommends outpatient follow-up for cath. 2. Severe mitral and tricuspid regurgitation seen on echocardiogram. Patient denies risk factors of endocarditis. Does report multiple episodes of strep throat. Continue SHERIDAN inhibitor and Lasix. 3. D-dimer elevated at 0.87. CTA of the chest rules out pulmonary embolus. 4. ALT 63. Likely secondary to dehydration and likely liver dysfunction for obesity. Abdominal ultrasound shows hepatomegaly. 5. Continue heparin and Protonix. Patient medical CHF exacerbation, cardiology on consult. Unknown cause for acute onset systolic heart failure. Entresto started, likely discharge today pending cardiology clearance. Pertinent Studies: Chest x-ray echocardiogram chest CTA abdominal ultrasound Patient Condition at Discharge: Stable Plan - Discharge Summary Discharge Rx Participant: No New Discharge Prescriptions: No Action No Known Home Medications Discharge Medication List No Known Home Medications 12/30/18 [History] Follow up Appointment(s)/Referral(s): Nonstaff,Physician [Primary Care Provider] - 1-2 days Sravan Diaz MD [STAFF PHYSICIAN] - 1 Week Patient Instructions/Handouts: Metoprolol (By mouth), Spironolactone (By mouth) , Furosemide (By mouth), Potassium Chloride (By mouth), Aspirin (By mouth), Heparin (By injection), Pantoprazole (By mouth), Magnesium Sulfate/Dextrose Premix (By injection), Sacubitril/Valsartan (By mouth), Heart Failure (DC), Heart Healthy Diet (ED), Low-Sodium Diet (ED) Activity/Diet/Wound Care/Special Instructions: DC RX Pt qualifies for $10/mo Entresto-coupon supplied Please follow-up with your primary care provider within 1-2 days of discharge. Please follow-up with cardiology with the appointment given to you. Please take all medications as advised. Discharge Disposition: HOME SELF-CARE
--- NOTE | 2019-01-03 14:44 | P.PN ---
Subjective Progress Note Date: 01/03/19 This is a 33-year-old female with no prior documented history of coronary artery disease, who had an upper respiratory infection in November which was treated however she states it took quite some time for her to get over. She has noticed over the past 6 months to have gained some weight. She presented to the hospital initially with symptoms of shortness of breath mostly exertional in nature, also evidence of orthopnea. The patient was seen in consultation by Dr. Diaz, echocardiogram with Doppler study showed an ejection fraction of 20-25%, severely dilated left atrium, moderate to severe MR , moderate to severe TR. Patient was initiated on a regime of medications for her cardiomyopathy. This morning we did stop her SHERIDAN inhibitor and instruct the patient that we would be starting her on Entresto 36 hours. Overall the patient feels well, he's been encouraged today to be up ambulating in the hallway. Blood pressure 108/70 with a heart rate in the 50s to 60s, 96% on room air. 01/02/2019 Patient was seen and examined this morning, doing well overall. Breathing is stable. We will repeat a chest x-ray on her. Weight is down 1 kg. Discontinue IV Lasix and started on oral diuretics. Plan for possible discharge home in 24 hours if stable. 01/03/2019 Patient has been able waiting in the hallway most of the morning, doing well, denies any shortness of breath. Blood pressure running in the low 100s to mid- 90s systolic. Patient feels well and is eager to be discharged home today. Objective - Vital Signs Vital signs: Vital Signs Temp 98.4 F 01/03/19 11:24 Pulse 94 01/03/19 11:24 Resp 18 01/03/19 11:24 BP 101/55 01/03/19 11:24 Pulse Ox 94 L 01/03/19 11:24 Intake & Output 01/02/19 01/03/19 01/03/19 18:59 06:59 18:59 Intake Total 880 720 Output Total 900 800 400 Balance -20 -800 320 Weight 102.6 kg Intake: Oral 880 720 Output: Urine 900 800 400 Other: Voiding Method Toilet Toilet # Voids 2 1 - Exam PHYSICAL EXAMINATION: GENERAL: 31-year-old female in no acute distress at the time of my examination HEENT: Head is atraumatic, normocephalic. Pupils equal, round. Sclera anicteric. Conjunctiva are clear. Mucous membranes of the mouth are moist. Neck is supple. There is no elevated jugular venous pressure. No carotid bruit is heard. HEART EXAMINATION: Heart S1 S2 1 systolic murmur is heard CHEST EXAMINATION: Lungs are clear to auscultation and precussion. No chest wall tenderness is noted on palpation or with deep breathing. ABDOMEN: Soft, nontender. Bowel sounds are heard. No organomegaly noted. EXTREMITIES: 2+ peripheral pulses with trace evidence of peripheral edema and no calf tenderness noted. NEUROLOGIC patient is awake, alert and oriented 3 . . - Labs CBC & Chem 7: 01/02/19 06:00 01/02/19 06:00 Assessment and Plan Plan: Assessment and plan #1 systolic congestive heart failure acute #2 severe cardiomyopathy, of unclear etiology, possibly of viral myocarditis or idiopathic dilated cardiomyopathy Plan Cardiology's perspective, patient may be able to be discharged home today. Discharge medications include aspirin 81 mg daily, Lasix 40 mg by mouth twice a day, metoprolol 25 mg daily, Entresto 24/26 mg one tablet by mouth twice a day aldactone. Follow up with Dr Diaz. DNP note has been reviewed, I agree with a documented findings and plan of care. Patient was seen and examined.
== END 2019-01-03 16:15 | disposition home or self-care (01) | DRG 291 ==
LOC: EC 17:03 → 3SCARD 23:30
PROVIDERS: ADMIT Internal Medicine; ATTEND Internal Medicine
DX: I50.21 Acute systolic (congestive) heart failure (principal); J18.9 Pneumonia, unspecified organism; E87.2 Acidosis; I42.0 Dilated cardiomyopathy; I08.1 Rheumatic disorders of both mitral and tricuspid valves; R16.0 Hepatomegaly, not elsewhere classified; E86.0 Dehydration; K76.89 Other specified diseases of liver; E66.9 Obesity, unspecified; I49.3 Ventricular premature depolarization; B33.24 Viral cardiomyopathy; R79.1 Abnormal coagulation profile; Z88.1 Allergy status to other antibiotic agents; Z88.0 Allergy status to penicillin; Z68.36 Body mass index [BMI] 36.0-36.9, adult
CPT/HCPCS: 36415; 71046; 71275; 76705; 80053; 81025; 82550; 82553; 82728; 83735; 83880; 84443; 84484; 85025; 85379; 85610; 85730; 90686; 93005; 93306; 96372; 96374; 96376; 99285

== ENCOUNTER → 2019-01-27 | Day surgery (SDC) | payer BC ==
[2019-01-24 09:56] VITALS: BMI 35.8
[~2019-01-27] MED LIST: ALPRAZolam 0.25 MG TAB PO PRN; ALPRAZolam 0.5 MG TAB PO PRN; ASPIRIN 325 MG TAB PO STA; ATORVASTATIN 80 MG TAB PO STA; HEPARIN SODIUM 1,000 UN/ML (10ML VL) IV ONE; HEPARIN SODIUM 1,000 UN/ML (10ML VL) ONE; IOPAMIDOL-370 100ML BTL INJ ONE; LIDOCAINE 1% INJ 10MG/ML (20 ML MDV) ONE; LIDOCAINE 1% INJ 10MG/ML (20 ML MDV) SQ ONE; METOPROLOL SUCCINATE (ER) 25 MG TAB.ER.24H PO SCH; NITROGLYCERIN SL TABS 0.4 MG TAB SUBLINGUAL PRN; PANTOPRAZOLE 40 MG TABLET PO SCH; RX INFO: IV CONTRAST WAS GIVEN 1 EACH MISC MISCELLANE PRN; SACUBITRIL/VALSARTAN 24 MG-26 MG TABLET PO SCH; SODIUM CHLORIDE 0.9% 1,000 ML IV SCH; SODIUM CHLORIDE 0.9% 1,000 ML in EMPTY BAG 1 BAG IV ONE; SPIRONOLACTONE 25 MG TAB PO SCH; VERAPAMIL 2.5 MG/ML 2 ML AMP ONE; VERAPAMIL SYRINGE (5 MG/10 ML) INTRAARTER ONE; fentaNYL (PF) 50 MCG/ML 2 ML AMP IV ONE; fentaNYL (PF) 50 MCG/ML 2 ML AMP ONE
[2019-01-27 07:14] VITALS: RESP 18; TEMP 98.1
[2019-01-27 08:27] LABS: O2 Sat Blood Gas 77.8 %
[2019-01-27 08:30] LABS: O2 Sat Blood Gas 81.1 %
[2019-01-27 08:33] LABS: O2 Sat Blood Gas 98.2 %
--- NOTE | 2019-01-27 09:18 | CC ---
CARDIAC CATHETERIZATION REPORT Mrs. Louise is a 33-year-old female who was recently admitted to the hospital with symptoms of congestive heart failure, was found to have severe cardiomyopathy. In view of that and after adjustment of her medical regimen, recommendation made regarding cardiac catheterization. The procedures, risks, and complication were discussed with the patient who is in full understanding and agreement. PROCEDURE: Patient was brought to the director geophysical laboratory in a fasting semi-sedated state after receiving fentanyl and Benadryl and achieving moderate conscious sedated state. Using Xylocaine anesthesia and Seldinger technique, a 6-Qatari sheath was introduced in the right radial artery. Using a guidewire exchange technique, the venous catheter in the right brachial area was exchanged to a 6-Qatari sheath. Following that, right heart catheterization was performed. Using [place]-Jeanette catheter multiple samples and pressures were calculated. Cardiac output by thermodilution was calculated. Following that, selective right and left coronary angiography were performed using 5-Qatari 3.5 bend right and left Enma catheter, multiple views of the coronary artery including hemiaxial views obtained. Following that, a 5-Qatari tight pigtail catheter was introduced in the left ventricle and a 30 degree BROWN view of the left ventricle was obtained. Following that, catheter and sheaths were removed. Hemostasis was obtained with deployment of a TR band and compression on the brachial area. There was no immediate complication. Patient is returned to her room in stable condition. Of note, the patient received 5000 units of intravenous heparin as well as intra-arterial verapamil. HEMODYNAMICS: Right atrial saturation 81%, pulmonary saturation 78%, arterial saturation 98%. Cardiac output by thermodilution 7.7 L/minute and by Kun 5.8 L/minute. Pulmonary artery systolic pressure of 18 with a diastolic of 7 and a mean of 10 mmHg. Pulmonary capillary wedge pressure A-wave of 6, V-wave 5 with a mean of 4 mmHg, right ventricular systolic pressure of 19 with an end-diastolic of 1 mmHg. Right atrial A-wave are 1, V- wave of 1 with a mean of 1 mmHg. There was no gradient across the aortic valve. The left ventricular end-diastolic pressure was 8-10 mmHg. CORONARIES: LEFT MAIN: This is a short-size vessel, large in caliber, bifurcating into left circumflex, left anterior descending artery. Left main coronary artery has no evidence of high-grade stenosis. LEFT ANTERIOR DESCENDING ARTERY: This is a large-sized vessel, reaching toward the apex with a wraparound apex segment, giving rise to a large diagonal branch. The left anterior descending artery as well as branches have no evidence of obstructive coronary artery disease. LEFT CIRCUMFLEX: This is a nondominant vessel, giving rise to a large obtuse marginal branch. The left circumflex as well as branches have no evidence of obstructive coronary artery disease. RIGHT CORONARY ARTERY: This is a large dominant vessel, bifurcating distally to PDA, posterolateral segment and branches. The right coronary artery as well as branches have no evidence of obstructive coronary artery disease. LEFT VENTRICULOGRAM: Left ventriculogram is performed in the 30 degree BROWN view and revealed dilated left ventricle with severe global hypokinesis. There was an estimated ejection fraction 20%. There was 2+ mitral regurgitation. CONCLUSION: 1. Normal coronary arteries. 2. Severe impairment left ventricular systolic function. 3. No evidence of pulmonary hypertension. RECOMMENDATION: 1. In view of finding anatomy, I have recommended to optimize her medical regimen and depending on her progress, if there is no improvement in left ventricular systolic function, then will proceed with an ICD implantation. Those findings and recommendation were discussed with the patient and her family, who are in full understanding and agreement. 2. Duration of procedure is 33 minutes. MMODL / IJN: [id number] /
[2019-01-27 13:22] VITALS: BP 88/55; PULSE 72
== END | disposition home or self-care (01) ==
LOC: CATHCVL 06:10
PROVIDERS: ATTEND Internal Medicine Interventional Cardiology
DX: I42.9 Cardiomyopathy, unspecified (principal); I08.1 Rheumatic disorders of both mitral and tricuspid valves; I50.20 Unspecified systolic (congestive) heart failure; Z79.82 Long term (current) use of aspirin; Z79.899 Other long term (current) drug therapy; Z88.0 Allergy status to penicillin; Z88.1 Allergy status to other antibiotic agents
CPT/HCPCS: 93460; 85018; 82810; 81025; C1751; C1769; C1894; J2001; J3010; J1644; Q9967

== ENCOUNTER → 2020-08-24 | Outpatient (CLI) | payer BC ==
[2020-08-24 22:43] LABS: Albumin 4.4 g/dL (3.80-4.90); Albumin/Globulin Ratio 1.83 (1.60-3.17); Anion Gap 8.7 mmol/L (4.00-12.00); BUN/Creat Ratio 21.43 Ratio (12.00-20.00); Calcium 9.6 mg/dL (8.7-10.3); Carbon Dioxide 21.3 mmol/L (21.6-31.8); Globulin 2.4 g/dL (1.6-3.3); Potassium 4.4 mmol/L (3.5-5.5); Total Bilirubin 0.6 mg/dL (0.3-1.2); Total Protein 6.8 g/dL (6.2-8.2)
== END | disposition home or self-care (01) ==
LOC: LABWHC1 13:33
PROVIDERS: ATTEND Internal Medicine
DX: I50.40 Unspecified combined systolic (congestive) and diastolic (congestive) heart failure (principal); I51.9 Heart disease, unspecified; I50.9 Heart failure, unspecified; I42.8 Other cardiomyopathies
CPT/HCPCS: 36415; 80053; 83880

== ENCOUNTER → 2020-10-22 | Outpatient (CLI) | payer BC ==
[2020-10-22 10:52] LABS: Basophils # (A) 0.1 k/uL (0-0.2); Basophils % (A) 1 %; Eosinophils # (A) 0.2 k/uL (0-0.7); Eosinophils % (A) 2 %; HCT 46.5 % (34.0-46.0); Lymphocytes % (A) 22 %; MCH 29.1 pg (25.0-35.0); MCHC 32.3 g/dL (31.0-37.0); MCV 89.9 fL (80.0-100.0); Mean Platelet Volume 7.3; Monocytes # (A) 0.4 k/uL (0-1.0); Monocytes % (A) 4 %; Neutrophils # (A) 6.2 k/uL (1.3-7.7); Neutrophils % (A) 69 %; Platelet Count 310 k/uL (150-450); RBC 5.18 m/uL (3.80-5.40); RDW 12.8 % (11.5-15.5)
[2020-10-22 16:13] LABS: Albumin 4.4 g/dL (3.80-4.90); Albumin/Globulin Ratio 1.91 (1.60-3.17); BUN/Creat Ratio 14.29 Ratio (12.00-20.00); Calcium 9.2 mg/dL (8.7-10.3); Chol/HDL Ratio 2.63; Globulin 2.3 g/dL (1.6-3.3); LDL Cholesterol,Calculated 60.4 mg/dL (0.0-131.0); Potassium 4.4 mmol/L (3.5-5.5); Total Bilirubin 0.7 mg/dL (0.3-1.2); Total Protein 6.7 g/dL (6.2-8.2); VLDL Calculation 19.6 mg/dL (5.00-40.00)
== END | disposition home or self-care (01) ==
LOC: LABWHC1 09:14
PROVIDERS: ATTEND Family Medicine
DX: Z00.00 Encounter for general adult medical examination without abnormal findings (principal); R53.83 Other fatigue; Z11.59 Encounter for screening for other viral diseases
CPT/HCPCS: 36415; 80053; 80061; 82306; 84443; 85025; 86803

== ENCOUNTER → 2021-06-22 | Outpatient (CLI) | payer BC ==
[2021-06-22 17:59] LABS: African American GFR (CKD) 130.1 (60.0-200.0); Anion Gap 7.8 mmol/L (4.00-12.00); BUN/Creat Ratio 17.14 Ratio (12.00-20.00); Calcium 9.3 mg/dL (8.7-10.3); Carbon Dioxide 21.2 mmol/L (21.6-31.8); Non-African American GFR(CKD) 112.3 (60.0-200.0); Potassium 4.5 mmol/L (3.5-5.5)
== END | disposition home or self-care (01) ==
LOC: LABWHC1 10:21
PROVIDERS: ATTEND Physician Assistant
DX: I50.9 Heart failure, unspecified (principal); I42.8 Other cardiomyopathies; I51.9 Heart disease, unspecified
CPT/HCPCS: 36415; 80048; 83880

== ENCOUNTER → 2021-12-24 | Outpatient (CLI) | payer BC ==
[2021-12-24 14:46] LABS: Basophils # (A) 0.05 X 10*3/uL (0.00-0.10); Basophils % (A) 0.7 %; Eosinophils # (A) 0.13 X 10*3/uL (0.04-0.35); Eosinophils % (A) 1.8 %; HCT 45.4 % (37.2-46.3); HGB 14.2 g/dL (12.0-15.0); Immature Grans, Automated 0.3 %; Lymphocytes # (A) 1.94 X 10*3/uL (0.90-5.00); Lymphocytes % (A) 27.4 %; MCH 28.2 pg (27.0-32.0); MCHC 31.3 g/dL (32.0-37.0); MCV 90.1 fL (80.0-97.0); Mean Platelet Volume 11.3 fL (9.5-12.2); Monocytes # (A) 0.51 X 10*3/uL (0.20-1.00); Monocytes % (A) 7.2 %; NRBC Per 100 WBC 0 /100 WBCS (0.0-0.0); Neutrophils # (A) 4.44 X 10*3/uL (1.80-7.70); Neutrophils % (A) 62.6 %; Platelet Count 306 X 10*3/uL (140-440); RBC 5.04 X 10*6/uL (4.10-5.20); RDW 14.5 % (11.5-14.5); WBC 7.09 X 10*3/uL (4.50-10.00)
[2021-12-24 15:00] LABS: % Iron Saturation 31.02 (12.00-45.00); ALT 8 U/L (8-44); AST 12 U/L (13-35); African American GFR (CKD) 113.8 (60.0-200.0); Albumin 4.3 g/dL (3.8-4.9); Albumin/Globulin Ratio 1.55 (1.60-3.17); Alkaline Phosphatase 47 U/L (41-126); BUN/Creat Ratio 17.39 Ratio (12.00-20.00); Blood Urea Nitrogen 13.6 mg/dL (9.0-27.0); Calcium 9.1 mg/dL (8.7-10.3); Carbon Dioxide 20.8 mmol/L (20.0-27.5); Chloride 105 mmol/L (96-109); Ferritin 82.2 ng/mL (10.0-291.0); Globulin 2.8 g/dL (1.6-3.3); Glucose 92 mg/dL (70-110); Iron 90 ug/dL (50-170); LDL Cholesterol,Calculated 71.3 mg/dL (0.0-131.0); Magnesium 2.3 mg/dL (1.5-2.4); Non-African American GFR(CKD) 98.2 (60.0-200.0); Potassium 4.3 mmol/L (3.5-5.5); Sodium 139 mmol/L (135-145); Total Iron Binding Capacity 290 ug/dL (228-460); Total Protein 7.1 g/dL (6.2-8.2); VLDL Calculation 15.24 mg/dL (5.00-40.00)
== END | disposition home or self-care (01) ==
LOC: LABWHC1 07:37
PROVIDERS: ATTEND Internal Medicine
DX: I50.9 Heart failure, unspecified (principal); I42.8 Other cardiomyopathies
CPT/HCPCS: 36415; 80053; 80061; 82728; 83036; 83540; 83550; 83735; 83880; 84443; 85025

== ENCOUNTER → 2022-02-07 | Outpatient (CLI) | payer BC ==
[2022-02-07 22:38] LABS: African American GFR (CKD) 110.7 (60.0-200.0); Albumin 4.4 g/dL (3.8-4.9); Albumin/Globulin Ratio 1.83 (1.60-3.17); Anion Gap 11.1 mmol/L (10.00-18.00); BUN/Creat Ratio 17.63 Ratio (12.00-20.00); Blood Urea Nitrogen 14.1 mg/dL (9.0-27.0); Calcium 9.4 mg/dL (8.7-10.3); Carbon Dioxide 22.9 mmol/L (20.0-27.5); Globulin 2.4 g/dL (1.6-3.3); Non-African American GFR(CKD) 95.5 (60.0-200.0); Potassium 4.5 mmol/L (3.5-5.5); Total Bilirubin 0.4 mg/dL (0.30-1.20); Total Protein 6.8 g/dL (6.2-8.2)
== END | disposition home or self-care (01) ==
LOC: LABWHC1 15:38
PROVIDERS: ATTEND Internal Medicine
DX: I50.9 Heart failure, unspecified (principal)
CPT/HCPCS: 36415; 80053; 83880

== ENCOUNTER → 2022-08-09 | Outpatient (CLI) | payer BC ==
[2022-08-09 16:43] LABS: African American GFR (CKD) 109.9 (60.0-200.0); Anion Gap 10.8 mmol/L (10.00-18.00); BUN/Creat Ratio 17.5 Ratio (12.00-20.00); Calcium 9.2 mg/dL (8.7-10.3); Carbon Dioxide 24.2 mmol/L (20.0-27.5); Non-African American GFR(CKD) 94.8 (60.0-200.0); Potassium 4.4 mmol/L (3.5-5.5)
== END | disposition home or self-care (01) ==
LOC: LABWHC1 10:16
PROVIDERS: ATTEND Physician Assistant
DX: I42.8 Other cardiomyopathies (principal); I50.9 Heart failure, unspecified; I51.9 Heart disease, unspecified; I51.4 Myocarditis, unspecified
CPT/HCPCS: 36415; 80048; 83880

== ENCOUNTER → 2022-10-04 | Outpatient (CLI) | payer BC ==
[2022-10-04 16:55] LABS: Basophils # (A) 0.03 X 10*3/uL (0.00-0.10); Basophils % (A) 0.6 %; Eosinophils # (A) 0.06 X 10*3/uL (0.04-0.35); Eosinophils % (A) 1.2 %; HCT 40.2 % (37.2-46.3); HGB 13.1 g/dL (12.0-15.0); Immature Grans, Automated 0.2 %; Lymphocytes # (A) 1.95 X 10*3/uL (0.90-5.00); Lymphocytes % (A) 38.1 %; MCH 29.2 pg (27.0-32.0); MCHC 32.6 g/dL (32.0-37.0); MCV 89.5 fL (80.0-97.0); Mean Platelet Volume 10.5 fL (9.5-12.2); Monocytes # (A) 0.39 X 10*3/uL (0.20-1.00); Monocytes % (A) 7.6 %; NRBC Per 100 WBC 0 /100 WBCS (0.0-0.0); Neutrophils # (A) 2.68 X 10*3/uL (1.80-7.70); Neutrophils % (A) 52.3 %; Platelet Count 283 X 10*3/uL (140-440); RBC 4.49 X 10*6/uL (4.10-5.20); RDW 13.2 % (11.5-14.5); WBC 5.12 X 10*3/uL (4.50-10.00)
[2022-10-04 17:39] LABS: % Iron Saturation 46.22 (12.00-45.00); ALT 12 U/L (8-44); AST 9 U/L (13-35); African American GFR (CKD) 118.7 (60.0-200.0); Albumin 4.1 g/dL (3.8-4.9); Alkaline Phosphatase 39 U/L (41-126); BUN/Creat Ratio 14.38 Ratio (12.00-20.00); Blood Urea Nitrogen 10.8 mg/dL (9.0-27.0); Chloride 108 mmol/L (96-109); Chol/HDL Ratio 2.28 Ratio; Ferritin 86.6 ng/mL (10.0-291.0); Globulin 2.1 g/dL (1.6-3.3); Glucose 91 mg/dL (70-110); Iron 121 ug/dL (50-170); LDL Cholesterol,Calculated 48.1 mg/dL (0.0-131.0); Non-African American GFR(CKD) 102.4 (60.0-200.0); Potassium 4.5 mmol/L (3.5-5.5); Sodium 139 mmol/L (135-145); Total Iron Binding Capacity 262 ug/dL (228-460); Total Protein 6.2 g/dL (6.2-8.2); VLDL Calculation 13.66 mg/dL (5.00-40.00)
== END | disposition home or self-care (01) ==
LOC: LABWHC1 11:18
PROVIDERS: ATTEND Family Medicine
DX: Z00.00 Encounter for general adult medical examination without abnormal findings (principal); Z13.220 Encounter for screening for lipoid disorders; Z11.59 Encounter for screening for other viral diseases; Z13.29 Encounter for screening for other suspected endocrine disorder; I11.0 Hypertensive heart disease with heart failure; I50.32 Chronic diastolic (congestive) heart failure; Z95.810 Presence of automatic (implantable) cardiac defibrillator
CPT/HCPCS: 36415; 80053; 80061; 82728; 83036; 83540; 83550; 83880; 84443; 85025; 86803

== ENCOUNTER → 2023-01-28 | Outpatient (CLI) | payer BC ==
[2023-01-28 11:23] LABS: African American GFR (CKD) 98.9 (60.0-200.0); BUN/Creat Ratio 26.46 Ratio (12.00-20.00); Blood Urea Nitrogen 23.1 mg/dL (9.0-27.0); Carbon Dioxide 23.8 mmol/L (20.0-27.5); Non-African American GFR(CKD) 85.3 (60.0-200.0); Potassium 4.9 mmol/L (3.5-5.5)
== END | disposition home or self-care (01) ==
LOC: LABWHC1 06:53
PROVIDERS: ATTEND Nurse Practitioner
DX: I42.8 Other cardiomyopathies (principal); I50.9 Heart failure, unspecified; I51.9 Heart disease, unspecified
CPT/HCPCS: 36415; 80048; 83880

== ENCOUNTER → 2023-02-04 | Outpatient (CLI) | payer BC ==
[2023-02-04 10:56] LABS: African American GFR (CKD) 109.9 (60.0-200.0); Anion Gap 11.9 mmol/L (10.00-18.00); BUN/Creat Ratio 20.75 Ratio (12.00-20.00); Blood Urea Nitrogen 16.6 mg/dL (9.0-27.0); Calcium 9.3 mg/dL (8.7-10.3); Carbon Dioxide 22.1 mmol/L (20.0-27.5); Magnesium 2.1 mg/dL (1.5-2.4); Non-African American GFR(CKD) 94.8 (60.0-200.0); Potassium 4.6 mmol/L (3.5-5.5)
== END | disposition home or self-care (01) ==
LOC: LABWHC1 06:48
PROVIDERS: ATTEND Nurse Practitioner
DX: I42.8 Other cardiomyopathies (principal)
CPT/HCPCS: 36415; 80048; 83735; 83880

== ENCOUNTER → 2023-04-25 | Outpatient (CLI) | payer BC ==
[2023-04-26 08:21] LABS: Basophils # (A) 0.05 X 10*3/uL (0.00-0.10); Basophils % (A) 0.8 %; Eosinophils % (A) 1.7 %; HCT 43.2 % (37.2-46.3); HGB 13.6 d/dL (12.0-15.0); Lymphocytes # (A) 1.88 X 10*3/uL (0.90-5.00); Lymphocytes % (A) 31.1 %; MCH 28.8 pg (27.0-32.0); MCHC 31.5 d/dL (32.0-37.0); MCV 91.5 FL (80.0-97.0); Mean Platelet Volume 11.2 FL (9.5-12.2); Monocytes # (A) 0.38 X 10*3/uL (0.20-1.00); Monocytes % (A) 6.3 %; NRBC Per 100 WBC 0 X 10*3/uL (0.00-0.01); Neutrophils # (A) 3.63 X 10*3/uL (1.80-7.70); Neutrophils % (A) 59.9 %; Platelet Count 236 X 10*3/uL (140-440); RBC 4.72 X 10*6/uL (4.10-5.20); RDW 14.1 % (11.5-14.5); WBC 6.05 X 10*3/uL (4.50-10.00)
[2023-04-26 08:34] LABS: % Iron Saturation 29.21 (12.00-45.00); ALT 55 U/L (8-44); AST 20 U/L (13-35); Albumin 4.1 d/dL (3.8-4.9); Albumin/Globulin Ratio 1.95 Ratio (1.60-3.17); Alkaline Phosphatase 48 U/L (41-126); BUN/Creat Ratio 18.22 Ratio (12.00-20.00); Blood Urea Nitrogen 16.4 mg/dL (9.0-27.0); Calcium 9.3 mg/dL (8.7-10.3); Carbon Dioxide 26.6 mmol/L (21.6-31.8); Chloride 106 mmol/L (96-109); Globulin 2.1 d/dL (1.6-3.3); Glucose 92 mg/dL (70-110); Iron 78 UG/DL (50-170); Magnesium 2.2 mg/dL (1.5-2.4); Potassium 4.4 mmol/L (3.5-5.5); Sodium 140 mmol/L (135-145); Total Bilirubin 0.8 mg/dL (0.3-1.2); Total Iron Binding Capacity 267 UG/DL (228-460); Total Protein 6.2 d/dL (6.2-8.2)
== END | disposition home or self-care (01) ==
LOC: LABWHC1 09:39
PROVIDERS: ATTEND Nurse Practitioner
DX: I42.8 Other cardiomyopathies (principal); I51.9 Heart disease, unspecified; I51.4 Myocarditis, unspecified; I50.20 Unspecified systolic (congestive) heart failure
CPT/HCPCS: 36415; 80053; 82728; 83540; 83550; 83735; 83880; 85025

== ENCOUNTER → 2023-05-09 | Outpatient (CLI) | payer BC ==
[2023-05-09 12:20] LABS: NT-Pro-B-Type Natriuretic Pept 7480 pg/mL
[2023-05-09 12:45] LABS: African American GFR (CKD) >90 (>60 ml/min/1.73 sqM); Anion Gap 6 mmol/L; Blood Urea Nitrogen 18 mg/dL (7-17); Calcium 8.4 mg/dL (8.4-10.2); Carbon Dioxide 27 mmol/L (22-30); Chloride 104 mmol/L (98-107); Glucose 80 mg/dL (74-99); Magnesium 2.3 mg/dL (1.6-2.3); Non-African American GFR(CKD) >90 (>60 ml/min/1.73 sqM); Potassium 4.2 mmol/L (3.5-5.1); Sodium 137 mmol/L (137-145)
== END | disposition home or self-care (01) ==
LOC: LABWHC1 10:04
PROVIDERS: ATTEND Nurse Practitioner
DX: I42.8 Other cardiomyopathies (principal); I50.9 Heart failure, unspecified; I51.9 Heart disease, unspecified
CPT/HCPCS: 36415; 80048; 83735; 83880

== ENCOUNTER → 2023-09-02 | Outpatient (CLI) | payer BC ==
[2023-09-02 08:32] LABS: African American GFR (CKD) >90 (>60 ml/min/1.73 sqM); Anion Gap 12 mmol/L; Blood Urea Nitrogen 28 mg/dL (7-17); Calcium 9.7 mg/dL (8.4-10.2); Carbon Dioxide 26 mmol/L (22-30); Chloride 97 mmol/L (98-107); Glucose 94 mg/dL (74-99); Non-African American GFR(CKD) >90 (>60 ml/min/1.73 sqM); Potassium 3.9 mmol/L (3.5-5.1); Sodium 135 mmol/L (137-145)
[2023-09-02 08:38] LABS: NT-Pro-B-Type Natriuretic Pept 5500 pg/mL
== END | disposition home or self-care (01) ==
LOC: LABWHC1 06:48
PROVIDERS: ATTEND Nurse Practitioner
DX: I50.20 Unspecified systolic (congestive) heart failure (principal)
CPT/HCPCS: 36415; 80048; 83880

== ENCOUNTER 2023-11-14 11:42 | Emergency (ER) | payer BC ==
[2023-11-14 12:18] VITALS: RESP 20
[2023-11-14] MEDS ORDERED: KETOROLAC 15 MG/ML 1 ML VIAL IVP STA (12:29)
[2023-11-14] MEDS ORDERED: SODIUM CHLORIDE 0.9% 500 ML 500 ML IV STA (12:29)
[2023-11-14] MEDS ORDERED: ONDANSETRON 4 MG/2 ML VIAL IVP STA (12:29)
[2023-11-14] MEDS ORDERED: DEXAMETHASONE SOD PHOSPHATE 10 MG/ML 1 ML VIAL IVP STA (12:29)
[2023-11-14] MEDS ORDERED: ACETAMINOPHEN TAB 500 MG TAB PO STA (12:29)
[2023-11-14] MEDS ORDERED: SODIUM CHLORIDE 0.9% 1,000 ML IV STA (12:29)
[2023-11-14] MEDS ORDERED: SODIUM CHLORIDE 0.9% 1,000 ML IV SCH (12:30)
--- NOTE | 2023-11-14 13:11 | ED ---
Recheck HPI - General Chief Complaint: Upper Respiratory Infection Stated Complaint: covid+,SOB Time Seen by Provider: 11/14/23 12:23 Source: patient, RN notes reviewed, old records reviewed Mode of arrival: ambulatory Limitations: no limitations - History of Present Illness Initial Comments: This is a 38-year-old female to the emergency department for evaluation. Patient presents today for evaluation regards to service of breath. 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 Patient does [facility] for heart disease but coming or shortness of breath blood pressure mildly low and feels like her heart is racing. She has had fevers and symptoms of coronavirus started 2 days ago. MD Complaint: abnormal lab (Positive diagnosis of coronavirus), other (Strong history of heart failure) Returns Today for: Called Because of Abnormal Lab/Test, persistent/worsening pain related to initial visit (And severely worsening shortness of breath) Symptoms Since Prior Visit: worsening pain (And shortness of breath) Associated Symptoms: shortness of breath, malaise Treatments Prior to Arrival: other (0) - Related Data Previous Rx's Medication Instructions Recorded Pantoprazole [Protonix] 40 mg PO AC-BRKFST #30 tablet. 01/03/19 Sacubitril/Valsartan [Entresto 24 1 each PO BID #60 tablet 01/03/19 mg-26 mg Tablet] Spironolactone [Aldactone] 25 mg PO DAILY #30 tab 01/03/19 Furosemide [Lasix] 20 mg PO DAILY #60 tab 01/27/19 Metoprolol Succinate (ER) [Toprol 25 mg PO BID #30 tab.er.24h 01/27/19 XL] Nirmatrelvir/Ritonavir [Paxlovid 1 each PO BID #10 each 11/14/23 300-100 mg Pack (Eua)] Allergies Allergy/AdvReac Type Severity Reaction Status Date / Time amoxicillin Allergy Rash/Hives Verified 11/14/23 11:58 neomycin Allergy Rash/Hives Verified 11/14/23 11:58 Review of Systems ROS Statement: Those systems with pertinent positive or pertinent negative responses have been documented in the HPI. ROS Other: All systems not noted in ROS Statement are negative. Past Medical History Past Medical History: Heart Failure, Hypertension History of Any Multi-Drug Resistant Organisms: None Reported Past Surgical History: No Surgical Hx Reported Additional Past Surgical History / Comment(s): oral surgery Past Anesthesia/Blood Transfusion Reactions: Unable to Obtain Additional Past Anesthesia/Blood Transfusion Reaction / Comment(s): Pt has never had general or spinal anesthesia. She had sedation for oral surgery and tolerated that well. Past Psychological History: No Psychological Hx Reported Smoking Status: Never smoker Past Alcohol Use History: Occasional Past Drug Use History: None Reported - Past Family History Father Family Medical History: Hypertension Mother Family Medical History: No Reported History Additional Family Medical History / Comment(s): Mother is healthy General Exam Limitations: no limitations Course Vital Signs 11/14/23 11/14/23 11/14/23 11:55 13:53 15:00 Temperature 98.6 F Pulse Rate 61 112 H 101 H Respiratory 20 20 20 Rate Blood Pressure 81/59 89/61 79/39 O2 Sat by Pulse 95 Oximetry 11/14/23 11/14/23 11/14/23 15:30 16:00 17:01 Temperature 98.5 F Pulse Rate 73 75 80 Respiratory 20 20 20 Rate Blood Pressure 78/46 85/52 78/52 O2 Sat by Pulse 95 96 Oximetry - Reevaluation(s) Reevaluation #1: Medical records reviewed Reevaluation #2: Patient is in no acute distress here in the ER feels improved Reevaluation #3: Patient informed results and questions answered Reevaluation #4: 11/14/23 16:12 Was pt. sent in by a medical professional or institution (, PA, PILLOW FILLER, urgent care, hospital, or fci...) When possible be specific @ -no Did you speak to anyone other than the patient for history (EMS, parent, family, police, friend...)? What history was obtained from this source @ -no Did you review nursing and triage notes (agree or disagree)? Why? @ -agree Are old charts reviewed (outside hosp., previous admission, EMS record, old EKG, old radiological studies, urgent care reports/EKG's, fci records)? Repo rt findings @ -yes Differential Diagnosis (chest pain, altered mental status, abdominal pain women, abdominal pain men, vaginal bleeding, weakness, fever, dyspnea, syncope, headache, dizziness, GI bleed, back pain, seizure, CVA, palpatations, mental health, musculoskeletal)? @ -prior EKG interpreted by me (3pts min.). @ -no X-rays interpreted by me (1pt min.). @ -yes positive for possible pneumonia CT interpreted by me (1pt min.). @ -no U/S interpreted by me (1pt. min.). @ -no What testing was considered but not performed or refused? (CT, X-rays, U/S, labs)? Why? @ -none What meds were considered but not given or refused? Why? @ -none Did you discuss the management of the patient with other professionals (professionals i.e. Dr., PA, PILLOW FILLER, lab, RT, psych nurse, social services assistant, insurance claim representative, teacher, chief digital media officer, clinical case manager)? Give summary @ -no Was smoking cessation discussed for >3mins.? @ -no Was critical care preformed (if so, how long)? @ -no Were there social determinants of health that impacted care today? How? (Homelessness, low income, unemployed, alcoholism, drug addiction, transportation, low edu. Level, literacy, decrease access to med. care, correction, rehab)? @ -none Was there de-escalation of care discussed even if they declined (Discuss DNR or withdrawal of care, Hospice)? DNR status @ -no What co-morbidities impacted this encounter? (DM, HTN, Smoking, COPD, CAD, Cancer, CVA, ARF, Chemo, Hep., AIDS, mental health diagnosis, sleep apnea, morbid obesity)? @ -none Was patient admitted / discharged? Hospital course, mention meds given and route, prescriptions, significant lab abnormalities, going to OR and other pertinent info. @ - 38 female to the emergency department for evaluation shortness with cough and congestion positive for coronavirus here in the ER no acute distress otherwise. Patient can be discharged home Discharge Undiagnosed new problem with uncertain prognosis? @ -no Drug Therapy requiring intensive monitoring for toxicity (Heparin, Nitro, Insulin, Cardizem)? @ -no Were any procedures done? @ -no Diagnosis/symptom? @ -Coronavirus Acute, or Chronic, or Acute on Chronic? @ -Acute Uncomplicated (without systemic symptoms) or Complicated (systemic symptoms)? @ -Complicated Side effects of treatment? @ -no Exacerbation, Progression, or Severe Exacerbation? @ -exacerbation Poses a threat to life or bodily function? How? (Chest pain, [place], [place], pneumonia, PE, COPD, DKA, ARF, appy, cholecystitis, CVA, Diverticulitis, Homicidal, Suicidal, threat to staff... and all critical care pts) @ -yes with significant infection coronavirus Reevaluation #5: 11/14/23 16:12 Differential Dyspnea: Coronary syndrome, arrhythmia, tamponade, asthma, COPD, pulmonary embolism, pneumonia, pneumothorax, pulmonary effusion, anaphylaxis, diabetic ketoacidosis, flailed chest, pulmonary contusion, diaphragmatic rupture, anemia, neuromuscular, this is not meant to be an all-inclusive list. Medical Decision Making - Medical Decision Making 38 female to the emergency department for evaluation shortness with cough and congestion positive for coronavirus here in the ER no acute distress otherwise. Patient can be discharged home he does have a strong history of underlying heart disease and congenital heart disease - Lab Data Result diagrams: 11/14/23 13:47 11/14/23 13:47 Lab Results 11/14/23 11/14/23 11/14/23 Range/Units 13:47 13:47 13:47 WBC 6.6 (3.8-10.6) k/uL RBC 4.87 (3.80-5.40) m/uL Hgb 14.6 (11.4-16.0) gm/dL Hct 44.6 (34.0-46.0) % MCV 91.5 (80.0-100.0) fL MCH 29.9 (25.0-35.0) pg MCHC 32.7 (31.0-37.0) g/dL RDW 13.6 (11.5-15.5) % Plt Count 221 (150-450) k/uL MPV 8.3 Neutrophils % 87 % Lymphocytes % 7 % Monocytes % 5 % Eosinophils % 0 % Basophils % 0 % Neutrophils # 5.7 (1.3-7.7) k/uL Lymphocytes # 0.5 L (1.0-4.8) k/uL Monocytes # 0.3 (0-1.0) k/uL Eosinophils # 0.0 (0-0.7) k/uL Basophils # 0.0 (0-0.2) k/uL PT 11.9 (10.0-12.5) sec INR 1.1 (<1.2) APTT 24.8 (22.0-30.0) sec Sodium 137 (137-145) mmol/L Potassium 4.2 (3.5-5.1) mmol/L Chloride 98 (98-107) mmol/L Carbon Dioxide 26 (22-30) mmol/L Anion Gap 13 mmol/L BUN 18 H (7-17) mg/dL Creatinine 0.88 (0.52-1.04) mg/dL Est GFR (CKD-EPI)AfAm >90 (>60 ml/min/1.73 sqM) Est GFR (CKD-EPI)NonAf 85 (>60 ml/min/1.73 sqM) Glucose 92 (74-99) mg/dL Plasma Lactic Acid Darryl (0.7-2.0) mmol/L Calcium 9.3 (8.4-10.2) mg/dL Phosphorus 4.2 (2.5-4.5) mg/dL Magnesium 2.4 H (1.6-2.3) mg/dL Total Bilirubin 1.7 H (0.2-1.3) mg/dL AST 22 (14-36) U/L ALT 34 (4-34) U/L Alkaline Phosphatase 67 (38-126) U/L Troponin I (0.000-0.034) ng/mL NT-Pro-B Natriuret Pep 87902 pg/mL Total Protein 6.9 (6.3-8.2) g/dL Albumin 4.2 (3.5-5.0) g/dL 11/14/23 11/14/23 Range/Units 13:47 13:47 WBC (3.8-10.6) k/uL RBC (3.80-5.40) m/uL Hgb (11.4-16.0) gm/dL Hct (34.0-46.0) % MCV (80.0-100.0) fL MCH (25.0-35.0) pg MCHC (31.0-37.0) g/dL RDW (11.5-15.5) % Plt Count (150-450) k/uL MPV Neutrophils % % Lymphocytes % % Monocytes % % Eosinophils % % Basophils % % Neutrophils # (1.3-7.7) k/uL Lymphocytes # (1.0-4.8) k/uL Monocytes # (0-1.0) k/uL Eosinophils # (0-0.7) k/uL Basophils # (0-0.2) k/uL PT (10.0-12.5) sec INR (<1.2) APTT (22.0-30.0) sec Sodium (137-145) mmol/L Potassium (3.5-5.1) mmol/L Chloride (98-107) mmol/L Carbon Dioxide (22-30) mmol/L Anion Gap mmol/L BUN (7-17) mg/dL Creatinine (0.52-1.04) mg/dL Est GFR (CKD-EPI)AfAm (>60 ml/min/1.73 sqM) Est GFR (CKD-EPI)NonAf (>60 ml/min/1.73 sqM) Glucose (74-99) mg/dL Plasma Lactic Acid Darryl 0.8 (0.7-2.0) mmol/L Calcium (8.4-10.2) mg/dL Phosphorus (2.5-4.5) mg/dL Magnesium (1.6-2.3) mg/dL Total Bilirubin (0.2-1.3) mg/dL AST (14-36) U/L ALT (4-34) U/L Alkaline Phosphatase (38-126) U/L Troponin I <0.012 (0.000-0.034) ng/mL NT-Pro-B Natriuret Pep pg/mL Total Protein (6.3-8.2) g/dL Albumin (3.5-5.0) g/dL - EKG Data -: EKG Interpreted by Me (EKG sinus a for W[place]-2 60 QRS 114 QTc 4:30) - Radiology Data Radiology results: report reviewed (Chest x-rays positive for possible edema versus Kovic pneumonia), image reviewed Disposition Clinical Impression: Coronavirus infection, CHF (congestive heart failure) Disposition: HOME SELF-CARE Condition: Good Instructions (If sedation given, give patient instructions): Coronavirus Disease 2019 (COVID-19), Heart Failure (ER) Prescriptions: Nirmatrelvir/Ritonavir [Paxlovid 300-100 mg Pack (Eua)] 1 each PO BID #10 each Is patient prescribed a controlled substance at d/c from ED?: No Referrals: Cachorro Hylton MD [Primary Care Provider] - 1-2 days Time of Disposition: 15:20
--- NOTE | 2023-11-14 13:19 | XR ---
EXAMINATION TYPE: XR chest 1V portable DATE OF EXAM: 11/14/2023 1:01 PM CLINICAL INDICATION:Female, 38 years old with history of cough; [facility] COMPARISON: Chest radiographs from 01/02/2019. TECHNIQUE: XR chest 1V portable Frontal view of the chest. FINDINGS: Lungs/Pleura: There is no evidence of pleural effusion, focal consolidation, or pneumothorax. Pulmonary vascularity: Pulmonary vascular congestion. Heart/mediastinum: Cardiomediastinal silhouette is enlarged and stable. Single-lead cardiac conductio n device overlying the left hemithorax with lead projecting over the right ventricle. Musculoskeletal: No acute osseous pathology. Other findings: None Lines/Tubes: IMPRESSION: Cardiomegaly and mild pulmonary vascular congestion. Correlate with BNP for congestive heart failure.
[2023-11-14 14:12] LABS: Basophils % (A) 0 %; Eosinophils % (A) 0 %; HCT 44.6 % (34.0-46.0); HGB 14.6 gm/dL (11.4-16.0); Lymphocytes # (A) 0.5 k/uL (1.0-4.8); Lymphocytes % (A) 7 %; MCH 29.9 pg (25.0-35.0); MCHC 32.7 g/dL (31.0-37.0); MCV 91.5 fL (80.0-100.0); Mean Platelet Volume 8.3; Monocytes # (A) 0.3 k/uL (0-1.0); Monocytes % (A) 5 %; Neutrophils # (A) 5.7 k/uL (1.3-7.7); Neutrophils % (A) 87 %; Platelet Count 221 k/uL (150-450); RBC 4.87 m/uL (3.80-5.40); RDW 13.6 % (11.5-15.5); WBC 6.6 k/uL (3.8-10.6)
[2023-11-14 14:24] LABS: INR 1.1 (<1.2); Partial Thromboplastin Time 24.8 sec (22.0-30.0); Prothrombin Time 11.9 sec (10.0-12.5)
[2023-11-14 14:27] LABS: ALT 34 U/L (4-34); AST 22 U/L (14-36); African American GFR (CKD) >90 (>60 ml/min/1.73 sqM); Albumin 4.2 g/dL (3.5-5.0); Alkaline Phosphatase 67 U/L (38-126); Anion Gap 13 mmol/L; Blood Urea Nitrogen 18 mg/dL (7-17); Calcium 9.3 mg/dL (8.4-10.2); Carbon Dioxide 26 mmol/L (22-30); Chloride 98 mmol/L (98-107); Glucose 92 mg/dL (74-99); Magnesium 2.4 mg/dL (1.6-2.3); Non-African American GFR(CKD) 85 (>60 ml/min/1.73 sqM); Phosphorus 4.2 mg/dL (2.5-4.5); Potassium 4.2 mmol/L (3.5-5.1); Sodium 137 mmol/L (137-145); Total Bilirubin 1.7 mg/dL (0.2-1.3); Total Protein 6.9 g/dL (6.3-8.2)
[2023-11-14 14:34] LABS: NT-Pro-B-Type Natriuretic Pept 10100 pg/mL
[2023-11-14 17:04] VITALS: BP 78/52; PULSE 80; TEMP 98.5
== END 2023-11-14 17:03 | disposition home or self-care (01) ==
LOC: EC 11:42
DX: B34.2 Coronavirus infection, unspecified (principal); I50.9 Heart failure, unspecified; I44.4 Left anterior fascicular block; I11.0 Hypertensive heart disease with heart failure; Z88.0 Allergy status to penicillin; Z88.8 Allergy status to other drugs, medicaments and biological substances
CPT/HCPCS: 36415; 93005; 83880; 80053; 83605; 83735; 84100; 84484; 85025; 85610; 85730; 71045; 99285; 96374; 96375 ×2; 96361; J1100; J2405; J1885

== ENCOUNTER → 2023-11-30 | Outpatient (CLI) | payer BC ==
[2023-11-30 08:21] LABS: NT-Pro-B-Type Natriuretic Pept 5040 pg/mL
[2023-11-30 16:10] LABS: Blood Urea Nitrogen 32.4 mg/dL (9.0-27.0); Calcium 9.1 mg/dL (8.7-10.3); Carbon Dioxide 19.4 mmol/L (21.6-31.8); Chloride 105 mmol/L (96-109); Glucose 104 mg/dL (70-110); Potassium 4.1 mmol/L (3.5-5.5); Sodium 139 mmol/L (135-145)
== END | disposition home or self-care (01) ==
LOC: LABWHC1 07:13
PROVIDERS: ATTEND Internal Medicine
DX: I50.20 Unspecified systolic (congestive) heart failure (principal); I42.8 Other cardiomyopathies
CPT/HCPCS: 36415; 80048; 83880

== ENCOUNTER → 2024-02-02 | Outpatient (CLI) | payer BC ==
[2024-02-02 11:55] LABS: BUN/Creat Ratio 30.89 Ratio (12.00-20.00); Blood Urea Nitrogen 27.8 mg/dL (9.0-27.0); Calcium 9.5 mg/dL (8.7-10.3); Carbon Dioxide 26.4 mmol/L (21.6-31.8); Chloride 100 mmol/L (96-109); Glucose 88 mg/dL (70-110); Magnesium 2.7 mg/dL (1.5-2.4); NT-Pro-B-Type Natriuretic Pept 4842 pg/mL (0-125); Potassium 4.1 mmol/L (3.5-5.5); Sodium 139 mmol/L (135-145)
== END ==
LOC: LABWHC1 07:11
PROVIDERS: ATTEND Internal Medicine
DX: I42.8 Other cardiomyopathies (principal); I50.9 Heart failure, unspecified
CPT/HCPCS: 36415; 80048; 83735; 83880

== ENCOUNTER 2024-02-05 01:37 | Emergency (ER) | payer BC ==
--- NOTE | 2024-02-05 01:54 | ED ---
Abdominal Pain HPI - General Chief Complaint: Abdominal Pain Stated Complaint: Right sided abd pain Time Seen by Provider: 02/05/24 01:45 Source: patient, RN notes reviewed, old records reviewed Mode of arrival: ambulatory Limitations: no limitations - History of Present Illness Initial Comments: This is a 38-year-old female to the ER for evaluation today. Patient [place] for evaluation of sudden onset of right-sided abdominal pain right flank pain right upper quadrant abdominal pain rating to the anterior abdomen and back. Severe sudden onset of pain waking patient from sleep tonight. Patient states on arrival to the ER her symptoms are dramatically improving but are still significant. No history of significant abdominal surgery. No history of kidney stones. No history of similar pain MD Complaint: abdominal pain, flank pain (Right-sided) -: hour(s) (2) Location: RUQ, epigastric, R flank Radiation: back Severity: severe Severity scale (1-10): 10 Quality: stabbing Consistency: constant Improves With: nothing Worsens With: nothing Associated Symptoms: nausea - Related Data Previous Rx's Medication Instructions Recorded Pantoprazole [Protonix] 40 mg PO AC-BRKFST #30 tablet. 01/03/19 Sacubitril/Valsartan [Entresto 24 1 each PO BID #60 tablet 01/03/19 mg-26 mg Tablet] Spironolactone [Aldactone] 25 mg PO DAILY #30 tab 01/03/19 Furosemide [Lasix] 20 mg PO DAILY #60 tab 01/27/19 Metoprolol Succinate (ER) [Toprol 25 mg PO BID #30 tab.er.24h 01/27/19 XL] Nirmatrelvir/Ritonavir [Paxlovid 1 each PO BID #10 each 11/14/23 300-100 mg Pack (Eua)] Allergies Allergy/AdvReac Type Severity Reaction Status Date / Time amoxicillin Allergy Rash/Hives Verified 02/05/24 01:41 neomycin Allergy Rash/Hives Verified 02/05/24 01:41 Review of Systems ROS Statement: Those systems with pertinent positive or pertinent negative responses have been documented in the HPI. ROS Other: All systems not noted in ROS Statement are negative. Past Medical History Past Medical History: Heart Failure, Hypertension History of Any Multi-Drug Resistant Organisms: None Reported Past Surgical History: No Surgical Hx Reported Additional Past Surgical History / Comment(s): oral surgery Past Anesthesia/Blood Transfusion Reactions: Unable to Obtain Additional Past Anesthesia/Blood Transfusion Reaction / Comment(s): Pt has never had general or spinal anesthesia. She had sedation for oral surgery and tolerated that well. Past Psychological History: No Psychological Hx Reported Smoking Status: Never smoker Past Alcohol Use History: Occasional Past Drug Use History: None Reported - Past Family History Father Family Medical History: Hypertension Mother Family Medical History: No Reported History Additional Family Medical History / Comment(s): Mother is healthy General Exam Limitations: no limitations General appearance: alert, in no apparent distress Head exam: Present: atraumatic, normocephalic, normal inspection Eye exam: Present: normal appearance, PERRL, EOMI. Absent: scleral icterus, conjunctival injection, periorbital swelling ENT exam: Present: normal exam, mucous membranes moist Neck exam: Present: normal inspection. Absent: tenderness, meningismus, lymphadenopathy Respiratory exam: Present: normal lung sounds bilaterally. Absent: respiratory distress, wheezes, rales, rhonchi, stridor Cardiovascular Exam: Present: regular rate, normal rhythm, normal heart sounds. Absent: systolic murmur, diastolic murmur, rubs, gallop, clicks GI/Abdominal exam: Present: soft, normal bowel sounds. Absent: distended, tenderness, guarding, rebound, rigid Extremities exam: Present: normal inspection, full ROM, normal capillary refill. Absent: tenderness, pedal edema, joint swelling, calf tenderness Back exam: Present: normal inspection Neurological exam: Present: alert, oriented X3, CN II-XII intact Psychiatric exam: Present: normal affect, normal mood Skin exam: Present: warm, dry, intact, normal color. Absent: rash Course Vital Signs 02/05/24 02/05/24 02/05/24 01:38 03:11 05:50 Temperature 97.8 F Pulse Rate 75 71 71 Respiratory 18 16 16 Rate Blood Pressure 89/63 84/54 89/68 O2 Sat by Pulse 97 98 97 Oximetry - Reevaluation(s) Reevaluation #1: 02/05/24 02:29 Records reviewed Reevaluation #2: Patient symptoms are improved here in the ER Reevaluation #3: Patient informed of results questions answered Reevaluation #4: Was pt. sent in by a medical professional or institution (, PA, MIDDLE SCHOOL DIRECTOR, urgent care, hospital, or fdc...) When possible be specific @ -no Did you speak to anyone other than the patient for history (EMS, parent, family, police, friend...)? What history was obtained from this source @ -no Did you review nursing and triage notes (agree or disagree)? Why? @ -agree Are old charts reviewed (outside hosp., previous admission, EMS record, old EKG, old radiological studies, urgent care reports/EKG's, fdc records)? Report findings @ -yes Differential Diagnosis (chest pain, altered mental status, abdominal pain women, abdominal pain men, vaginal bleeding, weakness, fever, dyspnea, syncope, headache, dizziness, GI bleed, back pain, seizure, CVA, palpatations, mental health, musculoskeletal)? @ -prior EKG interpreted by me (3pts min.). @ -no X-rays interpreted by me (1pt min.). @ -no CT interpreted by me (1pt min.). @ -yes negative for acute disease U/S interpreted by me (1pt. min.). @ -no What testing was considered but not performed or refused? (CT, X-rays, U/S, labs)? Why? @ -none What meds were considered but not given or refused? Why? @ -none Did you discuss the management of the patient with other professionals (professionals i.e. ADALBERTO Rueda, MIDDLE SCHOOL DIRECTOR, lab, RT, psych nurse, social service agency director, tele rn, teacher, guest relations officer, counseling case manager)? Give summary @ -no Was smoking cessation discussed for >3mins.? @ -no Was critical care preformed (if so, how long)? @ -no Were there social determinants of health that impacted care today? How? (Homelessness, low income, unemployed, alcoholism, drug addiction, transportation, low edu. Level, literacy, decrease access to med. care, fpc, rehab)? @ -none Was there de-escalation of care discussed even if they declined (Discuss DNR or withdrawal of care, Hospice)? DNR status @ -no What co-morbidities impacted this encounter? (DM, HTN, Smoking, COPD, CAD, Cancer, CVA, ARF, Chemo, Hep., AIDS, mental health diagnosis, sleep apnea, morbid obesity)? @ -none Was patient admitted / discharged? Hospital course, mention meds given and route, prescriptions, significant lab abnormalities, going to OR and other pertinent info. @ - 38 female does present today for evaluation abdominal pain. No acute findings here in the emergency room. Patient has improvement in symptoms and can be discharged home Discharge Undiagnosed new problem with uncertain prognosis? @ -no Drug Therapy requiring intensive monitoring for toxicity (Heparin, Nitro, Insuli n, Cardizem)? @ -no Were any procedures done? @ -no Diagnosis/symptom? @ -Abdominal pain Acute, or Chronic, or Acute on Chronic? @ -Acute Uncomplicated (without systemic symptoms) or Complicated (systemic symptoms)? @ -Complicated Side effects of treatment? @ -no Exacerbation, Progression, or Severe Exacerbation? @ -exacerbation Poses a threat to life or bodily function? How? (Chest pain, [place], [place], pneumonia, PE, COPD, DKA, ARF, appy, cholecystitis, CVA, Diverticulitis, Homicidal, Suicidal, threat to staff... and all critical care pts) @ -no Reevaluation #5: Differential Abdominal Pain Women: Appendicitis, Cholecystitis, diverticulosis, ischemic bowel, pancreatitis, hepatitis, UTI, gastroenteritis, AAA, incarcerated hernia, bowel obstruction, constipation, inflammatory bowel, hepatitis, peptic ulcer disease, splenic infarction, perforated viscus, vulvitis, ovarian torsion, PID, kidney stone, placenta abruption, this is not meant to be an all-inclusive list Medical Decision Making - Medical Decision Making 38 female does present today for evaluation abdominal pain. No acute findings here in the emergency room. Patient has improvement in symptoms and can be discharged home - Lab Data Result diagrams: 02/05/24 01:56 02/05/24 01:56 Lab Results 02/05/24 02/05/24 02/05/24 Range/Units 01:56 01:56 01:56 WBC 8.5 (3.8-10.6) k/uL RBC 4.87 (3.80-5.40) m/uL Hgb 14.3 (11.4-16.0) gm/dL Hct 44.3 (34.0-46.0) % MCV 91.0 (80.0-100.0) fL MCH 29.5 (25.0-35.0) pg MCHC 32.4 (31.0-37.0) g/dL RDW 13.1 (11.5-15.5) % Plt Count 257 (150-450) k/uL MPV 8.2 Neutrophils % 60 % Lymphocytes % 31 % Monocytes % 5 % Eosinophils % 1 % Basophils % 1 % Neutrophils # 5.1 (1.3-7.7) k/uL Lymphocytes # 2.7 (1.0-4.8) k/uL Monocytes # 0.4 (0-1.0) k/uL Eosinophils # 0.1 (0-0.7) k/uL Basophils # 0.1 (0-0.2) k/uL Sodium (137-145) mmol/L Potassium (3.5-5.1) mmol/L Chloride (98-107) mmol/L Carbon Dioxide (22-30) mmol/L Anion Gap mmol/L BUN (7-17) mg/dL Creatinine (0.52-1.04) mg/dL Est GFR (CKD-EPI)AfAm (>60 ml/min/1.73 sqM) Est GFR (CKD-EPI)NonAf (>60 ml/min/1.73 sqM) Glucose (74-99) mg/dL Calcium (8.4-10.2) mg/dL Total Bilirubin (0.2-1.3) mg/dL AST (14-36) U/L ALT (4-34) U/L Alkaline Phosphatase (38-126) U/L Total Protein (6.3-8.2) g/dL Albumin (3.5-5.0) g/dL Amylase (30-110) U/L Lipase (23-300) U/L Urine Color Colorless Urine Appearance Clear (Clear) Urine pH 5.5 (5.0-8.0) Ur Specific Ama 1.010 (1.001-1.035) Urine Protein Negative (Negative) Urine Glucose (UA) 1+ H (Negative) Urine Ketones Negative (Negative) Urine Blood Trace H (Negative) Urine Nitrite Negative (Negative) Urine Bilirubin Negative (Negative) Urine Urobilinogen <2.0 (<2.0) mg/dL Ur Leukocyte Esterase Negative (Negative) Urine RBC 1 (0-5) /hpf Urine WBC 1 (0-5) /hpf Ur Squamous Epith Cells 1 (0-4) /hpf Amorphous Sediment Rare H (None) /hpf Urine Bacteria Occasional H (None) /hpf Hyaline Casts 9 H (0-2) /lpf Urine Mucus Rare H (None) /hpf Urine HCG, Qual Not Detected (Not Detectd) 02/05/24 Range/Units 01:56 WBC (3.8-10.6) k/uL RBC (3.80-5.40) m/uL Hgb (11.4-16.0) gm/dL Hct (34.0-46.0) % MCV (80.0-100.0) fL MCH (25.0-35.0) pg MCHC (31.0-37.0) g/dL RDW (11.5-15.5) % Plt Count (150-450) k/uL MPV Neutrophils % % Lymphocytes % % Monocytes % % Eosinophils % % Basophils % % Neutrophils # (1.3-7.7) k/uL Lymphocytes # (1.0-4.8) k/uL Monocytes # (0-1.0) k/uL Eosinophils # (0-0.7) k/uL Basophils # (0-0.2) k/uL Sodium 136 L (137-145) mmol/L Potassium 3.7 (3.5-5.1) mmol/L Chloride 104 (98-107) mmol/L Carbon Dioxide 21 L (22-30) mmol/L Anion Gap 11 mmol/L BUN 26 H (7-17) mg/dL Creatinine 0.79 (0.52-1.04) mg/dL Est GFR (CKD-EPI)AfAm >90 (>60 ml/min/1.73 sqM) Est GFR (CKD-EPI)NonAf >90 (>60 ml/min/1.73 sqM) Glucose 98 (74-99) mg/dL Calcium 9.1 (8.4-10.2) mg/dL Total Bilirubin 1.0 (0.2-1.3) mg/dL AST 19 (14-36) U/L ALT 23 (4-34) U/L Alkaline Phosphatase 62 (38-126) U/L Total Protein 7.0 (6.3-8.2) g/dL Albumin 4.3 (3.5-5.0) g/dL Amylase 76 (30-110) U/L Lipase 122 (23-300) U/L Urine Color Urine Appearance (Clear) Urine pH (5.0-8.0) Ur Specific Ama (1.001-1.035) Urine Protein (Negative) Urine Glucose (UA) (Negative) Urine Ketones (Negative) Urine Blood (Negative) Urine Nitrite (Negative) Urine Bilirubin (Negative) Urine Urobilinogen (<2.0) mg/dL Ur Leukocyte Esterase (Negative) Urine RBC (0-5) /hpf Urine WBC (0-5) /hpf Ur Squamous Epith Cells (0-4) /hpf Amorphous Sediment (None) /hpf Urine Bacteria (None) /hpf Hyaline Casts (0-2) /lpf Urine Mucus (None) /hpf Urine HCG, Qual (Not Detectd) - Radiology Data Radiology results: report reviewed (CT abdomen pelvis is negative for acute disease), image reviewed Disposition Clinical Impression: Abdominal pain Disposition: HOME SELF-CARE Condition: Good Instructions (If sedation given, give patient instructions): Abdominal Pain (ED) Is patient prescribed a controlled substance at d/c from ED?: No Referrals: Cachorro Hylton MD [Primary Care Provider] - 1-2 days Time of Disposition: 05:30
[2024-02-05 02:03] VITALS: TEMP 97.8
[2024-02-05] MEDS: KETOROLAC 15 MG/ML 1 ML VIAL IVP STA (02:04)
[2024-02-05] MEDS: SODIUM CHLORIDE 0.9% 1,000 ML IV STA (02:04)
[2024-02-05] MEDS: ONDANSETRON 4 MG/2 ML VIAL IVP STA (02:04)
[2024-02-05 02:10] LABS: Basophils # (A) 0.1 k/uL (0-0.2); Basophils % (A) 1 %; Eosinophils # (A) 0.1 k/uL (0-0.7); Eosinophils % (A) 1 %; HCT 44.3 % (34.0-46.0); HGB 14.3 gm/dL (11.4-16.0); Lymphocytes # (A) 2.7 k/uL (1.0-4.8); Lymphocytes % (A) 31 %; MCH 29.5 pg (25.0-35.0); MCHC 32.4 g/dL (31.0-37.0); Mean Platelet Volume 8.2; Monocytes # (A) 0.4 k/uL (0-1.0); Monocytes % (A) 5 %; Neutrophils # (A) 5.1 k/uL (1.3-7.7); Neutrophils % (A) 60 %; Platelet Count 257 k/uL (150-450); RBC 4.87 m/uL (3.80-5.40); RDW 13.1 % (11.5-15.5); WBC 8.5 k/uL (3.8-10.6)
[2024-02-05 02:26] LABS: ALT 23 U/L (4-34); AST 19 U/L (14-36); African American GFR (CKD) >90 (>60 ml/min/1.73 sqM); Albumin 4.3 g/dL (3.5-5.0); Alkaline Phosphatase 62 U/L (38-126); Amylase 76 U/L (30-110); Anion Gap 11 mmol/L; Blood Urea Nitrogen 26 mg/dL (7-17); Calcium 9.1 mg/dL (8.4-10.2); Carbon Dioxide 21 mmol/L (22-30); Chloride 104 mmol/L (98-107); Glucose 98 mg/dL (74-99); Lipase 122 U/L (23-300); Non-African American GFR(CKD) >90 (>60 ml/min/1.73 sqM); Potassium 3.7 mmol/L (3.5-5.1); Sodium 136 mmol/L (137-145)
[2024-02-05 02:29] LABS: Amorphous Sediment,Urine Rare /hpf; Appearance,Urine Clear (Clear); Bacteria,Urine Occasional /hpf; Bilirubin,Urine Negative (Negative); Blood,Urine Trace (Negative); Color,Urine Colorless; Glucose,Urine (UA) 1+ (Negative); Hyaline Casts,Urine 9 /lpf (0-2); Ketones,Urine Negative (Negative); Leukocyte Esterase,Urine Negative (Negative); Mucus,Urine Rare /hpf; Nitrite,Urine Negative (Negative); PH, Urine 5.5 (5.0-8.0); Protein,Urine Negative (Negative); RBC,Urine 1 /hpf (0-5); Squamous Epithelial Cell,Urine 1 /hpf (0-4); Urobilinogen,Urine <2.0 mg/dL (<2.0); WBC,Urine 1 /hpf (0-5)
[2024-02-05 03:41] VITALS: PULSE 71; RESP 16
--- NOTE | 2024-02-05 05:33 | CT ---
EXAM: CT Abdomen and Pelvis Without Intravenous Contrast CLINICAL HISTORY: ITS.REASON CT Reason: abdominal pain TECHNIQUE: Axial computed tomography images of the abdomen and pelvis without intravenous contrast. CTDI is 13.9 mGy and DLP is 801.2 mGy-cm. This CT exam was performed using one or more of the following dose reduction techniques: automated exposure control, adjustment of the mA and/or kV according to patient size, and/or use of iterative reconstruction technique. COMPARISON: No relevant prior studies available. FINDINGS: Limitations: Limited evaluation in the absence of contrast. Lung bases: Unremarkable. No mass. No consolidation. ABDOMEN: Liver: Unremarkable. Gallbladder and bile ducts: Unremarkable. No calcified stones. No ductal dilation. Pancreas: Unremarkable. No ductal dilation. Spleen: Unremarkable. No splenomegaly. Adrenals: Unremarkable. No mass. Kidneys and ureters: No evidence of radiopaque renal calculi or signs of collecting system dilatation. Simple right renal cyst. No follow-up of this simple cyst is necessary. Stomach and bowel: No evidence of bowel obstruction. No mucosal thickening. PELVIS: Appendix: Normal appendix. Bladder: Diffuse bladder wall thickening with adjacent stranding. Findings can be seen with cystitis. Consider correlation with laboratory values. No stones. Reproductive: Simple right ovarian cyst or follicle measuring 2.4 cm in maximum diameter. No follow-up is necessary. ABDOMEN and PELVIS: Intraperitoneal space: Unremarkable. No free air. No significant fluid collection. Bones/joints: Degenerative changes in the spine. No acute fracture. No dislocation. Soft tissues: Umbilical hernia containing fat. Partially visualized battery pack overlying the left chest wall. Vasculature: Unremarkable. No abdominal aortic aneurysm. Lymph nodes: Unremarkable. No enlarged lymph nodes. IMPRESSION: 1. Limited evaluation in the absence of contrast. 2. No evidence of radiopaque renal calculi or signs of collecting system dilatation. 3. Diffuse bladder wall thickening with adjacent stranding. Findings can be seen with cystitis. Consider correlation with laboratory values.
[2024-02-05 05:57] VITALS: BP 89/68
== END 2024-02-05 05:51 | disposition home or self-care (01) ==
LOC: EC 01:37
DX: R10.11 Right upper quadrant pain (principal); Z88.0 Allergy status to penicillin; Z88.8 Allergy status to other drugs, medicaments and biological substances
CPT/HCPCS: 36415; 80053; 82150; 83690; 85025; 81001; 81025; 74176; 99285; 96374; 96375; 96361; J2405; J1885; Q9967

== ENCOUNTER → 2024-02-22 | Outpatient (CLI) | payer BC ==
[2024-02-22 21:23] LABS: BUN/Creat Ratio 66.43 Ratio (12.00-20.00); Calcium 10.4 mg/dL (8.7-10.3); Carbon Dioxide 27.6 mmol/L (21.6-31.8); Chloride 87 mmol/L (96-109); Glucose 113 mg/dL (70-110); Potassium 3.4 mmol/L (3.5-5.5); Sodium 130 mmol/L (135-145)
[2024-02-22 21:37] LABS: NT-Pro-B-Type Natriuretic Pept 4333 pg/mL (0-125)
== END | disposition home or self-care (01) ==
LOC: LABWHC1 12:50
PROVIDERS: ATTEND Internal Medicine
DX: I42.8 Other cardiomyopathies (principal); I50.9 Heart failure, unspecified; I51.9 Heart disease, unspecified
CPT/HCPCS: 36415; 80048; 83880

== ENCOUNTER → 2024-03-02 | Outpatient (CLI) | payer BC ==
[2024-03-02 11:39] LABS: BUN/Creat Ratio 24.88 Ratio (12.00-20.00); Blood Urea Nitrogen 19.9 mg/dL (9.0-27.0); Calcium 9.7 mg/dL (8.7-10.3); Chloride 101 mmol/L (96-109); Glucose 106 mg/dL (70-110); Sodium 137 mmol/L (135-145)
== END | disposition home or self-care (01) ==
LOC: LABWHC1 07:12
PROVIDERS: ATTEND Nurse Practitioner
DX: I42.8 Other cardiomyopathies (principal); I50.9 Heart failure, unspecified
CPT/HCPCS: 36415; 80048

== ENCOUNTER → 2024-04-09 | Outpatient (CLI) | payer BC ==
[2024-04-09 11:55] LABS: African American GFR (CKD) >90 (>60 ml/min/1.73 sqM); Anion Gap 7 mmol/L; Blood Urea Nitrogen 20 mg/dL (7-17); Calcium 9.4 mg/dL (8.4-10.2); Carbon Dioxide 27 mmol/L (22-30); Chloride 106 mmol/L (98-107); Glucose 56 mg/dL (74-99); Non-African American GFR(CKD) 88 (>60 ml/min/1.73 sqM); Potassium 4.2 mmol/L (3.5-5.1); Sodium 140 mmol/L (137-145)
[2024-04-09 12:03] LABS: NT-Pro-B-Type Natriuretic Pept 8690 pg/mL
== END | disposition home or self-care (01) ==
LOC: LABWHC1 11:15
PROVIDERS: ATTEND Nurse Practitioner
DX: I42.8 Other cardiomyopathies (principal); I50.20 Unspecified systolic (congestive) heart failure
CPT/HCPCS: 36415; 80048; 83880

== ENCOUNTER 2024-06-08 07:40 | Emergency (ER) | payer BC ==
[2024-06-08] MEDS: SILVER NITRATE APPLICATOR 1 EACH STICK..EA. TOPICAL STA ×2 (08:00→08:05)
--- NOTE | 2024-06-08 08:28 | ED ---
General Adult HPI - General Chief complaint: ENT Stated complaint: nose bleed Time Seen by Provider: 06/08/24 07:43 Source: patient Mode of arrival: ambulatory Limitations: no limitations - History of Present Illness Initial comments: Dictation was produced using Snaps dictation software. please excuse any grammatical, word or spelling errors. Chief Complaint: 39-year-old female with epistaxis History of Present Illness: Patient 31-year-old female presents emergency department with epistaxis. Patient states that her nosebleed started around 5:30 AM this morning. 4 weeks ago patient had cardiac transplant procedure. She does not take any anticoagulation medications. Patient states she does take aspirin however. Patient states the transplant went well. This morning she woke up noticing that her nose was bleeding. Patient denies any significant history of epistaxis. Patient sprayed her nose with Afrin however bleeding did not seem to stop. The ROS documented in this emergency department record has been reviewed and confirmed by me. Those systems with pertinent positive or negative responses have been documented in the HPI. All other systems are other negative and/or noncontributory. - Related Data Previous Rx's Medication Instructions Recorded Pantoprazole [Protonix] 40 mg PO AC-BRKFST #30 tablet. 01/03/19 Sacubitril/Valsartan [Entresto 24 1 each PO BID #60 tablet 01/03/19 mg-26 mg Tablet] Spironolactone [Aldactone] 25 mg PO DAILY #30 tab 01/03/19 Furosemide [Lasix] 20 mg PO DAILY #60 tab 01/27/19 Metoprolol Succinate (ER) [Toprol 25 mg PO BID #30 tab.er.24h 01/27/19 XL] Nirmatrelvir/Ritonavir [Paxlovid 1 each PO BID #10 each 11/14/23 300-100 mg Pack (Eua)] Allergies Allergy/AdvReac Type Severity Reaction Status Date / Time amoxicillin Allergy Rash/Hives Verified 02/05/24 01:41 neomycin Allergy Rash/Hives Verified 02/05/24 01:41 Review of Systems ROS Statement: Those systems with pertinent positive or pertinent negative responses have been documented in the HPI. ROS Other: All systems not noted in ROS Statement are negative. Past Medical History Past Medical History: Heart Failure, Hypertension History of Any Multi-Drug Resistant Organisms: None Reported Past Surgical History: No Surgical Hx Reported Additional Past Surgical History / Comment(s): oral surgery, Heart transplant 05/08/24, Past Anesthesia/Blood Transfusion Reactions: Unable to Obtain Additional Past Anesthesia/Blood Transfusion Reaction / Comment(s): Pt has never had general or spinal anesthesia. She had sedation for oral surgery and tolerated that well. Past Psychological History: No Psychological Hx Reported Smoking Status: Never smoker Past Alcohol Use History: Occasional Past Drug Use History: None Reported - Past Family History Father Family Medical History: Hypertension Mother Family Medical History: No Reported History Additional Family Medical History / Comment(s): Mother is healthy General Exam - General Exam Comments Initial Comments: General: Well-appearing, nontoxic, no acute distress. Head: Normocephalic, atraumatic Eyes: PERRLA, EOMI ENT: Airway patent, bleeding blood vessel at the right naris nasal septum Chest: Nonlabored breathing Skin: No visual rash, normal skin tone Neuro: Alert and oriented 3 Musculoskeletal: No gross abnormalities Limitations: no limitations Course Vital Signs 06/08/24 06/08/24 07:41 08:03 Temperature 97.5 F L 97.7 F Pulse Rate 90 82 Respiratory 18 17 Rate Blood Pressure 181/102 163/101 O2 Sat by Pulse 96 97 Oximetry - Reevaluation(s) Reevaluation #1: 06/08/24 08:28 Epistaxis controlled with silver nitrate stick. There was a an obvious bleeder at the right inferior nasal septum. Patient tolerated procedure well. Medical Decision Making - Medical Decision Making Was pt. sent in by a medical professional or institution (, PA, COMMUNITY SERVICE MANAGER, urgent care, hospital, or fdc...) When possible be specific @ -No Did you speak to anyone other than the patient for history (EMS, parent, family, police, friend...)? What history was obtained from this source @ -No Did you review nursing and triage notes (agree or disagree)? Why? @ -I reviewed and agree with nursing and triage notes Were old charts reviewed (outside hosp., previous admission, EMS record, old EKG, old radiological studies, urgent care reports/EKG's, fdc records)? Report findings @ -No old charts were reviewed Differential Diagnosis (chest pain, altered mental status, abdominal pain women, abdominal pain men, vaginal bleeding, musculoskeletal, weakness, fever, dyspnea, syncope, headache, dizziness, GI bleed, back pain, seizure, CVA, palpatations, mental health)? @ -Anterior epistaxis, posterior epistaxis, nasal trauma EKG interpreted by me (3pts min.). @ -None done X-rays interpreted by me (1pt min.). @ -None done CT interpreted by me (1pt min.). @ -None done U/S interpreted by me (1pt. min.). @ -None done What testing was considered but not performed or refused? (CT, X-rays, U/S, labs)? Why? @ -None What meds were considered but not given or refused? Why? @ -None Was smoking cessation discussed for >3mins.? @ -No Were there social determinants of health that impacted care today? How? (Homelessness, low income, unemployed, alcoholism, drug addiction, transportation, low edu. Level, literacy, decrease access to med. care, retirement, rehab)? @ -No Was there de-escalation of care discussed even if they declined (Discuss DNR or withdrawal of care, Hospice)? DNR status @ -No What co-morbidities impacted this encounter? (DM, HTN, Smoking, COPD, CAD, Cancer, CVA, ARF, Chemo, Hep., AIDS, mental health diagnosis, sleep apnea, morbid obesity)? @ -None Was patient admitted / discharged? Hospital course, mention meds given and route, prescriptions, significant lab abnormalities, going to OR and other pertinent info. @ -39-year-old female with epistaxis. Bleeding is coming from the anterior nasal septum. No concern for posterior epistaxis. Epistaxis controlled with silver nitrate cautery. Patient observed emergency department for approximately 1 hour with resolution of bleeding. Patient counseled on epistaxis prevention and epistaxis control. Patient discharged Did you discuss the management of the patient with other professionals (professionals i.e. , PA, COMMUNITY SERVICE MANAGER, lab, RT, psych nurse, social media senior associate, biological scientist, teacher, fire information officer, returned case inspector)? Give summary @ -No Was critical care preformed (if so, how long)? @ -No Undiagnosed new problem with uncertain prognosis? @ -No Drug Therapy requiring intensive monitoring for toxicity (Heparin, Nitro, Insulin, Cardizem)? @ -No Were any procedures done? @ -No Diagnosis/symptom? Acute, or Chronic, or Acute on Chronic? Uncomplicated (without systemic symptoms) or Complicated (systemic symptoms)? @ -Epistaxis Side effects of treatment? @ -No Exacerbation, Progression, or Severe Exacerbation? @ -No Poses a threat to life or bodily function? How? (Chest pain, [place], [place], pneumonia, PE, COPD, DKA, ARF, appy, cholecystitis, CVA, Diverticulitis, Homicidal, Suicidal, threat to staff... and all critical care pts) @ -yes Disposition Clinical Impression: Bleeding nose Disposition: HOME SELF-CARE Condition: Fair Instructions (If sedation given, give patient instructions): Nosebleed (ED) Is patient prescribed a controlled substance at d/c from ED?: No Referrals: Cachorro Hylton MD [Primary Care Provider] - 1-2 days Time of Disposition: 08:46
[2024-06-08 08:49] VITALS: BP 152/100; PULSE 73; RESP 18; TEMP 98.9
== END 2024-06-08 08:58 | disposition home or self-care (01) ==
LOC: EC 07:40
DX: R04.0 Epistaxis (principal); Z88.0 Allergy status to penicillin; Z88.8 Allergy status to other drugs, medicaments and biological substances
CPT/HCPCS: 99283

== ENCOUNTER → 2024-08-12 | Outpatient (CLI) | payer BC ==
[2024-08-12 15:31] LABS: HCT 40.8 % (37.2-46.3); HGB 12.8 g/dL (12.0-15.0); MCH 30.4 pg (27.0-32.0); MCHC 31.4 g/dL (32.0-37.0); MCV 96.9 FL (80.0-97.0); Mean Platelet Volume 10.3 FL (9.5-12.2); NRBC Per 100 WBC 0 X 10*3/uL (0.00-0.01); Platelet Count 254 X 10*3/uL (140-440); RBC 4.21 X 10*6/uL (4.10-5.20)
[2024-08-12 15:43] LABS: BUN/Creat Ratio 36.17 Ratio (12.00-20.00); Blood Urea Nitrogen 21.7 mg/dL (9.0-27.0); Calcium 9.1 mg/dL (8.7-10.3); Carbon Dioxide 23.4 mmol/L (21.6-31.8); Chloride 108 mmol/L (96-109); Glucose 87 mg/dL (70-110); Potassium 4.1 mmol/L (3.5-5.5); Sodium 143 mmol/L (135-145)
[2024-08-12 16:15] LABS: Basophils # (M) 0.14 X 10*3/uL (0.00-0.10); Eosinophils # (M) 0.07 X 10*3/uL (0.04-0.35); Lymphocytes # (M) 1.77 X 10*3/uL (0.90-5.00); Macrocytosis (M) 2+; Metamyelocytes % 1 % (0-0); Monocytes # (M) 0.48 X 10*3/uL (0.20-1.00); Neutrophils # (M) 4.28 X 10*3/uL (1.80-7.70); Neutrophils % (M) 63 %
== END | disposition home or self-care (01) ==
LOC: LABWHC1 09:08
PROVIDERS: ATTEND Internal Medicine
DX: E78.2 Mixed hyperlipidemia (principal); I50.30 Unspecified diastolic (congestive) heart failure; T86.20 Unspecified complication of heart transplant; T86.23 Heart transplant infection; T86.22 Heart transplant failure; T86.21 Heart transplant rejection; T86.290 Cardiac allograft vasculopathy
CPT/HCPCS: 36415; 80048; 85025

== ENCOUNTER → 2024-11-05 | Outpatient (CLI) | payer BC ==
[2024-11-05 12:50] LABS: Basophils # (A) 0.05 X 10*3/uL (0.00-0.10); Basophils % (A) 0.7 %; Eosinophils # (A) 0.11 X 10*3/uL (0.04-0.35); Eosinophils % (A) 1.6 %; HGB 11.1 g/dL (12.0-15.0); Lymphocytes # (A) 1.66 X 10*3/uL (0.90-5.00); Lymphocytes % (A) 24.4 %; MCH 28.6 pg (27.0-32.0); MCHC 30.8 g/dL (32.0-37.0); MCV 92.8 FL (80.0-97.0); Monocytes % (A) 7.4 %; NRBC Per 100 WBC 0 X 10*3/uL (0.00-0.01); Neutrophils # (A) 4.34 X 10*3/uL (1.80-7.70); Neutrophils % (A) 63.8 %; Platelet Count 262 X 10*3/uL (140-440); RBC 3.88 X 10*6/uL (4.10-5.20)
[2024-11-05 13:43] LABS: Blood Urea Nitrogen 28.9 mg/dL (9.0-27.0); Calcium 8.9 mg/dL (8.7-10.3); Carbon Dioxide 23.9 mmol/L (21.6-31.8); Chloride 108 mmol/L (96-109); Glucose 77 mg/dL (70-110); Potassium 4.3 mmol/L (3.5-5.5); Sodium 142 mmol/L (135-145)
== END | disposition home or self-care (01) ==
LOC: LABWHC1 08:39
PROVIDERS: ATTEND Internal Medicine
DX: I50.30 Unspecified diastolic (congestive) heart failure (principal); T86.21 Heart transplant rejection; T86.22 Heart transplant failure; T86.23 Heart transplant infection; T86.290 Cardiac allograft vasculopathy; E78.2 Mixed hyperlipidemia
CPT/HCPCS: 36415; 80048; 85025

== ENCOUNTER → 2024-12-03 | Outpatient (CLI) | payer BC ==
[2024-12-04 07:24] LABS: Basophils # (A) 0.04 X 10*3/uL (0.00-0.10); Basophils % (A) 0.6 %; Eosinophils # (A) 0.09 X 10*3/uL (0.04-0.35); Eosinophils % (A) 1.2 %; HCT 42.3 % (37.2-46.3); Lymphocytes # (A) 1.34 X 10*3/uL (0.90-5.00); Lymphocytes % (A) 18.6 %; MCH 28.3 pg (27.0-32.0); MCHC 30.7 g/dL (32.0-37.0); Monocytes # (A) 0.54 X 10*3/uL (0.20-1.00); Monocytes % (A) 7.5 %; NRBC Per 100 WBC 0.02 X 10*3/uL (0.00-0.01); Neutrophils # (A) 5.09 X 10*3/uL (1.80-7.70); Neutrophils % (A) 70.6 %; Platelet Count 278 X 10*3/uL (140-440); RDW 13.2 % (11.5-14.5); WBC 7.21 X 10*3/uL (4.50-10.00)
[2024-12-04 07:31] LABS: ALT 13 U/L (8-44); AST 18 U/L (13-35); Albumin 4.2 g/dL (3.8-4.9); Albumin/Globulin Ratio 1.75 Ratio (1.60-3.17); Alkaline Phosphatase 48 U/L (41-126); BUN/Creat Ratio 23.12 Ratio (12.00-20.00); Blood Urea Nitrogen 18.5 mg/dL (9.0-27.0); Carbon Dioxide 22.3 mmol/L (21.6-31.8); Chloride 106 mmol/L (96-109); Creatine Kinase 43 U/L (26-186); Globulin 2.4 g/dL (1.6-3.3); Glucose 85 mg/dL (70-110); Magnesium 1.8 mg/dL (1.5-2.4); Potassium 4.7 mmol/L (3.5-5.5); Sodium 140 mmol/L (135-145); Total Bilirubin 0.5 mg/dL (0.3-1.2); Total Protein 6.6 g/dL (6.2-8.2)
[2024-12-04 10:06] LABS: NT-Pro-B-Type Natriuretic Pept 562 pg/mL (0-125)
== END | disposition home or self-care (01) ==
LOC: LABWHC1 09:03
PROVIDERS: ATTEND Internal Medicine
DX: Z94.1 Heart transplant status (principal)
CPT/HCPCS: 36415; 80053; 82550; 83735; 83880; 85025

== ENCOUNTER → 2025-01-30 | Outpatient (CLI) | payer BC ==
[2025-01-30 15:06] LABS: ALT 13 U/L (8-44); AST 17 U/L (13-35); Albumin 4.2 g/dL (3.8-4.9); Albumin/Globulin Ratio 1.83 Ratio (1.60-3.17); Alkaline Phosphatase 47 U/L (41-126); Calcium 9.1 mg/dL (8.7-10.3); Carbon Dioxide 23.9 mmol/L (21.6-31.8); Chloride 109 mmol/L (96-109); Creatine Kinase 55 U/L (26-186); Globulin 2.3 g/dL (1.6-3.3); Glucose 81 mg/dL (70-110); Magnesium 1.8 mg/dL (1.5-2.4); Potassium 4.6 mmol/L (3.5-5.5); Sodium 143 mmol/L (135-145); Total Bilirubin 0.4 mg/dL (0.3-1.2); Total Protein 6.5 g/dL (6.2-8.2)
[2025-01-30 15:10] LABS: Basophils # (A) 0.04 X 10*3/uL (0.00-0.10); Basophils % (A) 0.6 %; Eosinophils # (A) 0.08 X 10*3/uL (0.04-0.35); Eosinophils % (A) 1.2 %; HCT 41.8 % (37.2-46.3); HGB 12.8 g/dL (12.0-15.0); Lymphocytes # (A) 1.37 X 10*3/uL (0.90-5.00); MCH 27.2 pg (27.0-32.0); MCHC 30.6 g/dL (32.0-37.0); MCV 88.7 FL (80.0-97.0); Mean Platelet Volume 10.9 FL (9.5-12.2); Monocytes # (A) 0.44 X 10*3/uL (0.20-1.00); Monocytes % (A) 6.7 %; NRBC Per 100 WBC 0 X 10*3/uL (0.00-0.01); Neutrophils # (A) 4.51 X 10*3/uL (1.80-7.70); Neutrophils % (A) 69.1 %; Platelet Count 283 X 10*3/uL (140-440); RBC 4.71 X 10*6/uL (4.10-5.20); RDW 13.3 % (11.5-14.5); WBC 6.53 X 10*3/uL (4.50-10.00)
== END | disposition home or self-care (01) ==
LOC: LABWHC1 08:21
PROVIDERS: ATTEND Internal Medicine
DX: I50.30 Unspecified diastolic (congestive) heart failure (principal); E78.2 Mixed hyperlipidemia; T86.20 Unspecified complication of heart transplant; T86.21 Heart transplant rejection; T86.22 Heart transplant failure; T86.23 Heart transplant infection; T86.290 Cardiac allograft vasculopathy; Z94.1 Heart transplant status
CPT/HCPCS: 36415; 80053; 80197; 82550; 83735; 85025

== ENCOUNTER → 2025-03-22 | Outpatient (CLI) | payer BC ==
[2025-03-22 15:22] LABS: BUN/Creat Ratio 27.62 Ratio (12.00-20.00); Blood Urea Nitrogen 22.1 mg/dL (9.0-27.0); Calcium 9.1 mg/dL (8.7-10.3); Carbon Dioxide 18.3 mmol/L (21.6-31.8); Chloride 108 mmol/L (96-109); Glucose 92 mg/dL (70-110); Potassium 4.6 mmol/L (3.5-5.5); Sodium 139 mmol/L (135-145)
[2025-03-22 15:28] LABS: Basophils # (A) 0.04 X 10*3/uL (0.00-0.10); Basophils % (A) 0.6 %; Eosinophils # (A) 0.12 X 10*3/uL (0.04-0.35); Eosinophils % (A) 1.9 %; HCT 40.4 % (37.2-46.3); HGB 12.9 g/dL (12.0-15.0); Lymphocytes # (A) 1.16 X 10*3/uL (0.90-5.00); Lymphocytes % (A) 18.2 %; MCH 27.5 pg (27.0-32.0); MCHC 31.9 g/dL (32.0-37.0); MCV 86.1 FL (80.0-97.0); Mean Platelet Volume 10.4 FL (9.5-12.2); Monocytes # (A) 0.37 X 10*3/uL (0.20-1.00); Monocytes % (A) 5.8 %; NRBC Per 100 WBC 0 X 10*3/uL (0.00-0.01); Neutrophils # (A) 4.62 X 10*3/uL (1.80-7.70); Neutrophils % (A) 72.7 %; Platelet Count 295 X 10*3/uL (140-440); RBC 4.69 X 10*6/uL (4.10-5.20); WBC 6.36 X 10*3/uL (4.50-10.00)
== END | disposition home or self-care (01) ==
LOC: LABWHC1 08:44
PROVIDERS: ATTEND Internal Medicine
DX: I50.32 Chronic diastolic (congestive) heart failure (principal); E78.2 Mixed hyperlipidemia; T86.20 Unspecified complication of heart transplant; T86.21 Heart transplant rejection; T86.22 Heart transplant failure; T86.23 Heart transplant infection; T86.90 Unspecified complication of unspecified transplanted organ and tissue; Z94.1 Heart transplant status
CPT/HCPCS: 36415; 80048; 85025

== ENCOUNTER → 2025-05-16 | Outpatient (CLI) | payer BC ==
[2025-05-16 15:01] LABS: Basophils # (A) 0.04 X 10*3/uL (0.00-0.10); Basophils % (A) 0.6 %; Eosinophils # (A) 0.15 X 10*3/uL (0.04-0.35); Eosinophils % (A) 2.1 %; HCT 41.3 % (37.2-46.3); HGB 12.5 g/dL (12.0-15.0); Immature Grans, Automated 1.10 %; Lymphocytes # (A) 1.24 X 10*3/uL (0.90-5.00); Lymphocytes % (A) 17.7 %; MCH 26.8 pg (27.0-32.0); MCHC 30.3 g/dL (32.0-37.0); MCV 88.6 FL (80.0-97.0); Monocytes # (A) 0.45 X 10*3/uL (0.20-1.00); Monocytes % (A) 6.4 %; NRBC Per 100 WBC 0 X 10*3/uL (0.00-0.01); Neutrophils # (A) 5.05 X 10*3/uL (1.80-7.70); Neutrophils % (A) 72.1 %; Platelet Count 321 X 10*3/uL (140-440); RBC 4.66 X 10*6/uL (4.10-5.20); RDW 13.8 % (11.5-14.5); WBC 7.01 X 10*3/uL (4.50-10.00)
[2025-05-16 15:36] LABS: Anion Gap 9.20 mmol/L (4.00-12.00); BUN/Creat Ratio 15.00 Ratio (12.00-20.00); Blood Urea Nitrogen 12.0 mg/dL (9.0-27.0); Calcium 9.2 mg/dL (8.7-10.3); Carbon Dioxide 22.8 mmol/L (21.6-31.8); Chloride 108 mmol/L (96-109); Glucose 92 mg/dL (70-110); Potassium 4.9 mmol/L (3.5-5.5); Sodium 140 mmol/L (135-145)
== END | disposition home or self-care (01) ==
LOC: LABWHC1 09:12
PROVIDERS: ATTEND Internal Medicine
DX: E78.2 Mixed hyperlipidemia (principal); T86.21 Heart transplant rejection; T86.22 Heart transplant failure; T86.23 Heart transplant infection; T86.290 Cardiac allograft vasculopathy; I50.30 Unspecified diastolic (congestive) heart failure
CPT/HCPCS: 36415; 80048; 85025

== ENCOUNTER → 2025-05-31 | Outpatient (CLI) | payer BC ==
[2025-05-31 15:32] LABS: Anion Gap 11.50 mmol/L (4.00-12.00); BUN/Creat Ratio 28.57 Ratio (12.00-20.00); Blood Urea Nitrogen 20.0 mg/dL (9.0-27.0); Calcium 9.0 mg/dL (8.7-10.3); Carbon Dioxide 19.5 mmol/L (21.6-31.8); Chloride 109 mmol/L (96-109); Glucose 91 mg/dL (70-110); Potassium 4.7 mmol/L (3.5-5.5); Sodium 140 mmol/L (135-145)
== END | disposition home or self-care (01) ==
LOC: LABWHC1 08:52
PROVIDERS: ATTEND Internal Medicine
DX: T86.20 Unspecified complication of heart transplant (principal); T86.21 Heart transplant rejection; T86.22 Heart transplant failure; T86.23 Heart transplant infection; T86.290 Cardiac allograft vasculopathy; E78.2 Mixed hyperlipidemia; I50.30 Unspecified diastolic (congestive) heart failure; Z94.1 Heart transplant status
CPT/HCPCS: 36415; 80048

== ENCOUNTER → 2025-06-13 | Outpatient (CLI) | payer BC ==
[2025-06-13 15:03] LABS: HCT 41.8 % (37.2-46.3); HGB 12.9 g/dL (12.0-15.0); MCH 26.9 pg (27.0-32.0); MCHC 30.9 g/dL (32.0-37.0); MCV 87.1 FL (80.0-97.0); NRBC Per 100 WBC 0 X 10*3/uL (0.00-0.01); Platelet Count 300 X 10*3/uL (140-440); RBC 4.80 X 10*6/uL (4.10-5.20); RDW 13.2 % (11.5-14.5); WBC 8.92 X 10*3/uL (4.50-10.00)
[2025-06-13 15:23] LABS: Anion Gap 10.80 mmol/L (4.00-12.00); BUN/Creat Ratio 18.38 Ratio (12.00-20.00); Blood Urea Nitrogen 14.7 mg/dL (9.0-27.0); Calcium 8.9 mg/dL (8.7-10.3); Carbon Dioxide 23.2 mmol/L (21.6-31.8); Chloride 107 mmol/L (96-109); Glucose 97 mg/dL (70-110); Potassium 4.6 mmol/L (3.5-5.5); Sodium 141 mmol/L (135-145)
[2025-06-13 15:33] LABS: Basophils # (M) 0 X 10*3/uL (0.00-0.10); Eosinophils # (M) 0.18 X 10*3/uL (0.04-0.35); Lymphocytes # (M) 0.89 X 10*3/uL (0.90-5.00); Monocytes # (M) 0.36 X 10*3/uL (0.20-1.00); Neutrophils # (M) 7.49 X 10*3/uL (1.80-7.70); Neutrophils % (M) 84 %; RBC Morphology Normal (Normal)
== END | disposition home or self-care (01) ==
LOC: LABWHC1 08:23
PROVIDERS: ATTEND Internal Medicine
DX: I50.30 Unspecified diastolic (congestive) heart failure (principal); E78.2 Mixed hyperlipidemia; T86.21 Heart transplant rejection; T86.22 Heart transplant failure; T86.23 Heart transplant infection; T86.290 Cardiac allograft vasculopathy
CPT/HCPCS: 36415; 80048; 80197; 85025